=== PATIENT | female | born 1975 | race Two or more races ===

== ENCOUNTER 2023-07-28 00:18 | Inpatient (IN) | payer OTHER, SELFPAY ==
--- OUTSIDE RECORDS SUMMARY | 2023-07-28 00:22 | XMS_ITS | Continuity of Care Document ---
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
--- OUTSIDE RECORDS SUMMARY | 2023-07-28 00:22 | XMS_ITS | Continuity of Care Document ---
Author Name Unknown Organization [facility] Address Unknown Care Team Providers Care Soda Jerker Name Role Phone Chaka VAUGHAN, Katia Busch Primary Care Physician [place] [facility] [place]21 [place] 12/26/21 [facility] Allergies, Adverse Reactions, Alerts No Known Allergies Immunizations Given and Recorded Vaccine Date Status Refusal Reason SARS-CoV-2 mRNA ([id number]) vax 11/17/21 Recorded SARS-CoV-2 mRNA ([id number]) vax 10/27/21 Recorded SARS-CoV-2 (COVID-19) mRNA-1273 vaccine 01/07/21 R ecorded Medications duloxetine 60 mg oral enteric coated capsule 1 capsule = 60 mg, By Mouth, 2 times a day, # 30 capsule, 0 Refills, Maintenance, 03/26/21 7:50:00 EDT, EC Capsule, Partial fill upon patient request if the prescription is for a schedule II opioid drug. Start Date: 03/26/21 Status: Ordered gabapentin 100 mg oral capsule See Instructions, 1 capsule By Mouth daily at bedtime, increase to 2 caps if needed after 3 days, increased to 3 caps if needed after 3 days, # 60 capsule, Refills 1, Tot. Refills 1, Maintenance, 08/12/21 9:41:00 EST, Instructions Replace Required Det... Start Date: 08/12/21 Status: Ordered omeprazole 20 mg oral enteric coated capsule 1 capsule = 20 mg, By Mouth, Daily, take on empty stomach , with water, 30 min before breakfast, # 30 capsule, 0 Refills, Maintenance, 10/27/21 11:40:00 EST, EC Capsule, [id number], Partial fill upon patient request if the prescription is for... Start Date: 10/27/21 Stop Date: 11/26/21 Status: Ordered riboflavin 100 mg oral tablet 1 tablet = 100 mg, By Mouth, 2 times a day, dose increase, # 60 tablet, 6 Refills, Maintenance, 10/20/21 14:33:00 [place], [id number], Partial fill upon patient request if the prescription is fora schedule II opioid drug., 165, cm, 09/30/21 9:51:... Start Date: 10/20/21 Stop Date: 05/18/22 Status: Ordered Problem List Condition Effective Dates Status Health Status Inform ant Alopecia(Confirmed) Active Anxiety(Confirmed) Active Easy bruising(Confirmed) Active Esophageal spasm(Confirmed) Active Fibromyalgia(Confirmed) Active GERD (gastroesophageal reflu x disease)(Confirmed) Active Migraines(Confirmed) Active Social History Social History Type Response Smoking Status Never (less than 100 in lifetime) entered on: 03/26/21 Sex
--- OUTSIDE RECORDS SUMMARY | 2023-07-28 00:22 | XMS_ITS | Patient Health Record ---
Author Name Unknown Organization [address] [facility] Address [address] [facility] [address] [place] [address] Care Team Providers Care Roading Engineer Name Role Phone DARCIE ADAME Unavailable [phone] MUHAMMADASHISH JACKSON Unavailable [phone] SABINAMONA Unavailable [phone] ALLERGIES Allergen (clinical drug ingredient) Drug/Non Drug Allergy documented on EMR Reaction Allergy Type Onset Date Status Tree Nuts Unknown Allergy Active Peanut Butter OS Unknown Drug Allergy Active RESULTS Component Value Reference Range Notes ANTINUCLEAR ANTIBODIES TITER AND PATTERN Reviewed date:02/09/2023 02:45:35 PM Interpretation: Performing Lab:NL2, link bird [facility] Mino Coker Notes/Report: FASTING: YES FASTING:YES 0; 0; 0; 0; 0; 0; 0; 0 DAWN TITER 1:160 Reference Range <1:40 Negative 1:40-1:80 Low Antibody Level >1:80 Elevated Antibody Level DAWN PATTERN Nuclear, Dense Fine Speckled Dense fine speckled pattern is seen in normal individuals and rarely associated with systemic lupus erythematosis (SLE), Sjogren's syndrome and systemic sclerosis. AC-2: Dense Fine Speckled International Consensus on DAWN Patterns (https://doi.org/10.1515/ qnct-9945-0818) VITAMIN D,25-OH,TOTAL,IA Reviewed date:02/05/2023 07:43:14 AM Interpretation: Performing Lab:NL2, link bird [facility] Mino Coker Notes/Report: FASTING: YES FASTING:YES 0; 0; 0; 0; 0; 0; 0; 0 VITAMIN D,25-OH,TOTAL,IA 22 30-100 ng/mL Vitamin D Status 25-OH Vitamin D: Deficiency: <20 ng/mL Insufficiency: 20 - 29 ng/mL Optimal: > or = 30 ng/mL For 25-OH Vitamin D testing on patients on D2-supplementation and patients for whom quantitation of D2 and D3 fractions is required, the QuestAssureD(TM) 25-OH VIT D, (D2,D3), LC/MS/MS is recommended: order code 29379 (patients >2yrs). See Note 1 Note 1 For additional information, please refer to http://Datorama.Lore/faq/WRE133 (This link is being provided for informational/ educational purposes only.) TSH Reviewed date:02/05/2023 07:42:46 AM Interpretation: Performing Lab:NL2, link bird [facility] Mino Coker Notes/Report: 0; 0; 0; 0; 0; 0; 0; 0 FASTING:YES FASTING: YES TSH 1.74 Reference Range > or = 20 Years 0.40-4.50 Ranges First trimester 0.26-2.66 Second trimester 0.55-2.73 Third trimester 0.43-2.91 VITAMIN B12 Reviewed date:02/05/2023 07:42:46 AM Interpretation: Performing Lab:NL2, link bird [facility] Mino Coker Notes/Report: 0; 0; 0; 0; 0; 0; 0; 0 FASTING:YES FASTING: YES VITAMIN B12 [phone] pg/mL Please Note: Although the reference range for vitamin B12 is 200-1100 pg/mL, it has been reported that between 5 and 10% of patients with values between 200 and 400 pg/mL may experience neuropsychiatric and hematologic abnormalities due to occult B12 deficiency; less than 1% of patients with values above 400 pg/mL will have symptoms. DAWN SCREEN, IFA, W/REFL TITE R AND PATTERN Reviewed date:02/09/2023 02:45:47 PM Interpretation: Performing Lab:SeeMe [facility] Mino Coker Notes/Report: 0; 0; 0; 0; 0; 0; 0; 0 FASTING:YES FASTING: YES DAWN SCREEN, IFA POSITIVE NEGATIVE DAWN IFA is a first line screen for detecting the presence of up to approximately 150 autoantibodies in various autoimmune diseases. A positive DAWN IFA result is suggestive of autoimmune disease and reflexes to titer and pattern. Further laboratory testing may be considered if clinically indicated. For additional information, please refer to http://education.Lore/faq/QTK251 (This link is being provided for informational/ educational purposes only.) RHEUMATOID FACTOR Reviewed date:02/08/2023 03:24:53 PM Interpretation: Performing Lab:[facility] [id number] Mino Coker Notes/Report: 0; 0; 0; 0; 0; 0; 0; 0 FASTING:YES FASTING: YES RHEUMATOID FACTOR 89 <14 IU/mL C-REACTIVE PROTEIN Reviewed date:02/05/2023 03:20:23 PM Interpretation: Performing Lab:[facility] [id number] Mino Coker Notes/Report: 0; 0; 0; 0; 0; 0; 0; 0 FASTING:YES FASTING: YES C-REACTIVE PROTEIN 4.8 <8.0 mg/L SED RATE BY MODIFIED WESTERG BRUNILDA Reviewed date:02/05/2023 07:42:46 AM Interpretation: Performing Lab:[facility] Mino Coker Notes/Report: 0; 0; 0; 0; 0; 0; 0; 0 FASTING:YES FASTING: YES SED RATE BY MODIFIED WESTERGREN 6 < OR = 20 mm/h URINALYSIS, COMPLETE Reviewed date:02/05/2023 07:43:21 AM Interpretation: Performing Lab:[facility] Mino Coker Notes/Report: 0; 0; 0; 0; 0; 0; 0; 0 FASTING:YES FASTING: YES COLOR YELLOW YELLOW APPEARANCE CLEAR CLEAR SPECIFIC GRAVITY 1.026 1.001-1.035 PH 6.0 5.0-8.0 GLUCOSE NEGATIVE NEGATIVE BILIRUBIN NEGATIVE NEGATIVE KETONES TRACE NEGATIVE OCCULT BLOOD NEGATIVE NEGATIVE PROTEIN TRACE NEGATIVE NITRITE NEGATIVE NEGATIVE LEUKOCYTE ESTERASE NEGATIVE NEGATIVE WBC NONE SEEN < OR = 5 /HPF RBC 0-2 < OR = 2 /HPF SQUAMOUS EPITHELIAL CELLS 0-5 < OR = 5 /HPF BACTERIA NONE SEEN NONE SEEN /HPF HYALINE CAST 6-10 NONE SEEN /LPF NOTE This urine was analyzed for the presence of WBC, RBC, bacteria, casts, and other formed elements. Only those elements seen were reported. CBC (INCLUDES DIFF/PLT) Reviewed date:02/05/2023 07:43:26 AM Interpretation: Performing Lab:NL2, link bird [facility] [id number] Mino Coker Notes/Report: 0; 0; 0; 0; 0; 0; 0; 0 FASTING:YES FASTING: YES WHITE BLOOD CELL COUNT 8.0 3.8-10.8 Thousand/uL RED BLOOD CELL COUNT 5.01 3.80-5.10 Million/uL HEMOGLOBIN 13.9 11.7-15.5 g/dL HEMATOCRIT 42.0 35.0-45.0 % MCV 83.8 80.0-100.0 fL MCH 27.7 27.0-33.0 pg MCHC 33.1 32.0-36.0 g/dL RDW 13.6 11.0-15.0 % PLATELET COUNT 353 140-400 Thousand/uL MPV 9.3 7.5-12.5 fL ABSOLUTE NEUTROPHILS [phone] cells/uL ABSOLUTE LYMPHOCYTES 2744 850-3900 cells/uL ABSOLUTE MONOCYTES 464 200-950 cells/uL ABSOLUTE EOSINOPHILS 800 15-500 cells/uL ABSOLUTE BASOPHILS 48 0-200 cells/uL NEUTROPHILS 49.3 LYMPHOCYTES 34.3 MONOCYTES 5.8 EOSINOPHILS 10.0 BASOPHILS 0.6 COMPREHENSIVE METABOLIC PANE L Reviewed date:02/05/2023 07:42:46 AM Interpretation: Performing Lab:2, link bird [facility] Mino Anayat Notes/Report: 0; 0; 0; 0; 0; 0; 0; 0 FASTING:YES FASTING: YES GLUCOSE 96 65-99 mg/dL Fasting reference interval UREA NITROGEN (BUN) 21 7-25 mg/dL CREATININE 0.85 0.50-0.99 mg/dL EGFR 85 > OR = 60 mL/min/1.73m2 The eGFR is based on the CKD-EPI 2020 equation. To calculate the new eGFR from a previous Creatinine or Cystatin C result, go to https://www.kidney.org/pr ofessionals/ kdoqi/gfr%5Fcalculator BUN/CREATININE RATIO NOT APPLICABLE 6-22 (calc) SODIUM 138 135-146 mmol/L POTASSIUM 4.2 3.5-5.3 mmol/L CHLORIDE 105 98-110 mmol/L CARBON DIOXIDE 25 20-32 mmol/L CALCIUM 9.8 8.6-10.2 mg/dL PROTEIN, TOTAL 7.1 6.1-8.1 g/dL ALBUMIN 4.8 3.6-5.1 g/dL GLOBULIN 2.3 1.9-3.7 g/dL (calc) ALBUMIN/GLOBULIN RATIO 2.1 1.0-2.5 (calc) BILIRUBIN, TOTAL 0.4 0.2-1.2 mg/dL ALKALINE PHOSPHATASE 71 31-125 U/L AST 18 10-35 U/L ALT 19 6-29 U/L VITAMIN D,25-OH,TOTAL,IA Reviewed date:09/16/2022 07:52:40 AM Interpretation: Performing Lab:NL2, [facility] [address] (2)[place] [address]RkkjphoimncIH[address] [facility] Coker Notes/Report: 0; 0; 0; 0; 0; 0 FASTING:NO FASTING: NO VITAMIN D,25-OH,TOTAL,IA 32 30-100 ng/mL Vitamin D Status 25-OH Vitamin D: Deficiency: <20 ng/mL Insufficiency: 20 - 29 ng/mL Optimal: > or = 30 ng/mL For 25-OH Vitamin D testing on patients on D2-supplementation and patients for whom quantitation of D2 and D3 fractions is required, the QuestAssureD(TM) 25-OH VIT D, (D2,D3), LC/MS/MS is recommended: order code 67411 (patients >2yrs). See Note 1 Note 1 For additional information, please refer to http://education.Lore/faq/PLB440 (This link is being provided for informational/ educational purposes only.) HEMOGLOBIN A1c Reviewed date:09/16/2022 07:52:40 AM Interpretation: Performing Lab:NL2, link bird [facility], (2), [id number] Mino Coker Notes/Report: 0; 0; 0; 0; 0; 0 FASTING:NO FASTING: NO HEMOGLOBIN A1c 5.5 <5.7 % of total Hgb For the purpose of screening for the presence of diabetes: <5.7% Consistent with the absence of diabetes 5.7-6.4% Consistent with increased risk for diabetes (prediabetes) > or =6.5% Consistent with diabetes This assay result is consistent with a decreased risk of diabetes. Currently, no consensus exists regarding use of hemoglobin A1c for diagnosis of diabetes in children. According to [place] Diabetes Association (ADA) guidelines, hemoglobin A1c <7.0% represents optimal control in non- diabetic patients. Different metrics may apply to specific patient populations. Standards of Medical Care in Diabetes(ADA). URINALYSIS, COMPLETE Reviewed date:09/16/2022 07:53:02 AM Interpretation: Performing Lab:NL2, link [facility], ([address]2), [id number] Mino Coker Notes/Report: 0; 0; 0; 0; 0; 0 FASTING:NO FASTING: NO COLOR YELLOW YELLOW APPEARANCE CLEAR CLEAR SPECIFIC GRAVITY 1.021 1.001-1.035 PH 6.0 5.0-8.0 GLUCOSE NEGATIVE NEGATIVE BILIRUBIN NEGATIVE NEGATIVE KETONES NEGATIVE NEGATIVE OCCULT BLOOD NEGATIVE NEGATIVE PROTEIN NEGATIVE NEGATIVE NITRITE NEGATIVE NEGATIVE LEUKOCYTE ESTERASE 1+ NEGATIVE WBC 0-5 < OR = 5 /HPF RBC NONE SEEN < OR = 2 /HPF SQUAMOUS EPITHELIAL CELLS NONE SEEN < OR = 5 /HPF BACTERIA NONE SEEN NONE SEEN /HPF HYALINE CAST NONE SEEN NONE SEEN /LPF NOTE This urine was analyzed for the presence of WBC, RBC, bacteria, casts, and other formed elements. Only those elements seen were reported. CBC (INCLUDES DIFF/PLT) Reviewed date:09/16/2022 07:52:53 AM Interpretation: Performing Lab:2, link bird [facility] ([address]), [id number] Mino Coker Notes/Report: 0; 0; 0; 0; 0; 0 FASTING:NO FASTING: NO WHITE BLOOD CELL COUNT 8.5 3.8-10.8 Thousand/uL RED BLOOD CELL COUNT 4.57 3.80-5.10 Million/uL HEMOGLOBIN 12.8 11.7-15.5 g/dL HEMATOCRIT 39.2 35.0-45.0 % MCV 85.8 80.0-100.0 fL MCH 28.0 27.0-33.0 pg MCHC 32.7 32.0-36.0 g/dL RDW 13.1 11.0-15.0 % PLATELET COUNT 337 140-400 Thousand/uL MPV 9.8 7.5-12.5 fL ABSOLUTE NEUTROPHILS 4029 4172-0120 cells/uL ABSOLUTE LYMPHOCYTES 3273 850-3900 cells/uL ABSOLUTE MONOCYTES 519 200-950 cells/uL ABSOLUTE EOSINOPHILS 629 15-500 cells/uL ABSOLUTE BASOPHILS 51 0-200 cells/uL NEUTROPHILS 47.4 LYMPHOCYTES 38.5 MONOCYTES 6.1 EOSINOPHILS 7.4 BASOPHILS 0.6 COMPREHENSIVE METABOLIC PANE L Reviewed date:09/16/2022 08:52:00 AM Interpretation: Performing Lab:SMIC, link bird [facility] ([address]), [id number] Mino Coker Notes/Report: 0; 0; 0; 0; 0; 0 FASTING:NO FASTING: NO GLUCOSE 86 65-139 mg/dL Non-fasting reference interval UREA NITROGEN (BUN) 18 7-25 mg/dL CREATININE 0.80 0.50-0.99 mg/dL EGFR 92 > OR = 60 mL/min/1.73m2 The eGFR is based on the CKD-EPI 2020 equation. To calculate the new eGFR from a previous Creatinine or Cystatin C result, go to https://www.kidney.org/pr ofessionals/ kdoqi/gfr%5Fcalculator BUN/CREATININE RATIO NOT APPLICABLE 03-18 (calc) SODIUM 141 135-146 mmol/L POTASSIUM 4.3 3.5-5.3 mmol/L CHLORIDE 107 98-110 mmol/L CARBON DIOXIDE 24 20-32 mmol/L CALCIUM 9.6 8.6-10.2 mg/dL PROTEIN, TOTAL 7.1 6.1-8.1 g/dL ALBUMIN 4.6 3.6-5.1 g/dL GLOBULIN 2.5 1.9-3.7 g/dL (calc) ALBUMIN/GLOBULIN RATIO 1.8 1.0-2.5 (calc) BILIRUBIN, TOTAL 0.5 0.2-1.2 mg/dL ALKALINE PHOSPHATASE 65 31-125 U/L AST 14 10-35 U/L ALT 15 6-29 U/L LIPID PANEL, STANDARD Reviewed date:09/16/2022 01:25:12 PM Interpretation: Performing Lab:NL2, link bird [facility] [address] [place] [address], (Nl2), [id number] [facility] Sheela Notes/Report: 0; 0; 0; 0; 0; 0 FASTING:NO FASTING: NO CHOLESTEROL, TOTAL 267 <200 mg/dL HDL CHOLESTEROL 69 > OR = 50 mg/dL TRIGLYCERIDES 190 <150 mg/dL LDL-CHOLESTEROL 163 Reference range: <100 Desirable range <100 mg/dL for primary prevention; <70 mg/dL for patients with CHD or diabetic patients with > or = 2 CHD risk factors. LDL-C is now calculated using the Lemuel-Glass calculation, which is a validated novel method providing better accuracy than the Friedewald equation in the estimation of LDL-C. Lemuel SS et al. BISMARK. 2013;310(19): 1317-5843 (http://education.AllergEase.Emulate/faq/SMB563) CHOL/HDLC RATIO 3.9 <5.0 (calc) NON HDL CHOLESTEROL 198 <130 mg/dL (calc) For patients with diabetes plus 1 major ASCVD risk factor, treating to a non-HDL-C goal of <100 mg/dL (LDL-C of <70 mg/dL) is considered a therapeutic option. REASON FOR REFERRAL Reason chronic back pain wi th [facility] in [place] Diagnosis 1 Lumbar pain (M54.50) Referral Organization [facility] Referring Provider First Name DARCIE Referring Provider Last Name WENDI Referring Provider Speciality Internal M edicine Referred Provider Specialty Spinal Cord Injury Medicine Clinical Notes NghiemKaren 2021 11:33:22 AM >waiting for complete office notes to fax referral, Jose Karen 09/15/2022 04:09:37 PM >referral info sent to [facility] in [facility], Jose Karen 09/17/2022 10:40:01 AM >notified pt to f/u for self appt Referral Priority Routine Diagnosis 1 Fibromyalgia (M79.7) Diagnosis 2 Lupus (M32.9) Referral Organization [facility] Referring Provider First Name DARCIE Referring Provider Last Name WENDI Referring Provider Speciality Internal M edicine Referred Provider Specialty Rheumatology Clinical Notes Louise Stearns 2022 03:53:37 PM >[facility] 02/16/2023 02:02:39 PM >pt is a pt there she can call to make appt Referral Priority Routine MEDICATIONS Medication SIG (Take, Route, Frequency, Duration) Notes Start Date End Date Status DULoxetine HCl 60 MG 1 capsule Orally On ce a day for 90 days Active Propranolol HCl 20 MG 1 tablet Orally On ce a day Active Pregabalin 150 MG 1 capsule Orally Twi ce a day for 30 days 05/25/2023 Not-Taking traMADol HCl 50 MG 1 tablet as needed Orally Once a day for 30 days 07/22/2023 Active Topiramate 25 MG TAKE 1 TABLET BY RENE TH EVERY DAY for 90 Active Pravastatin Sodium 20 MG 1 tablet Orally Once a day for 90 days Active SOCIAL HISTORY Sex Assigned At : Social History Observation Description Sex Assigned At Unknown PROBLEMS Problem Type ICD Code Onset Dates Problem Status W/U Status Risk SNOMED Code Notes Problem Chronic pain syndrome (G89.4) Active confirmed 588213217 Problem Fibromyalgia (M79.7) Active confirmed 813516502 Problem Hyperlipidemia, unspecified hyperlipidemia type (E78.5) Active confirmed 27705852 Problem Vitamin D deficiency (E55.9) Active confirmed Vitamin D deficiency (09965943) Problem Hair loss (L65.9) Active confirmed 2780 77890 Problem Intractable migraine without status migrainosus, unspecified migraine type (G43.919) Active confirmed 502558682 Problem Hypertension, unspecified type (I10) Active confirmed 96749887 Problem Lupus (M32.9) Active confirmed 27646936 3 Problem Brittle nails (L60.3) Active confirmed 02896795 Problem Depression, unspecified depression type (F32.A) Active confirmed 01977742 VITAL SIGNS Heart Rate 95 /min 07/21/2023 Oximetry 99 % 07/21/2023 Blood pressure diastolic 78 mm Hg 07/21/2023 Height 66 in 07/21/2023 Blood pressure systolic 120 mm Hg 07/21/2023 Weight 195.5 lbs 07/21/2023 BMI 31.55 kg/m2 07/21/2023 Encounters Encounter Location Date Provider Diagnosis [facility] [address] [place] [address] 01/06/2023 DARCIE WENDI [facility] [address] [place] [address] 06/01/2023 MONA MUHAMMAD [facility] [address] [place] [address] 07/21/2023 DARCIE WENDI Fibromyalgia M79.7 ; Nerve pain M79.2 ; Intractable migraine without status migrainosus, unspecified migraine type G43.919 ; Depression, unspecified depression type F32.A ; Hypertension, unspecified type I10 ; Hyperlipidemia, unspecified hyperlipidemia type E78.5 and Chronic pain syndrome G89.4 [facility] [address] [place] [address] 09/15/2022 DARCIE WENDI Brittle nails L60.3 ; Fibromyalgia M79.7 ; Hair loss L65.9 ; Intractable migraine without status migrainosus, unspecified migraine type G43.919 ; Depression, unspecified depression type F32.A ; Hypertension, unspecified type I10 ; Hyperlipidemia, unspecified hyperlipidemia type E78.5 and Chronic pain syndrome G89.4 [facility] [address] [place] [address] 11/02/2022 DARCIE WENDI Fibromyalgia M79.7 ; Wellness examination Z00.00 ; Colon cancer screening Z12.11 ; Breast cancer screening by mammogram Z12.31 ; Intractable migraine without status migrainosus, unspecified migraine type G43.919 ; Depression, unspecified depression type F32.A ; Hypertension, unspecified type I10 ; Hyperlipidemia, unspecified hyperlipidemia type E78.5 and Chronic pain syndrome G89.4 [facility] [address] [place] [address] 02/04/2023 DARCIE WENDI Nerve pain M79.2 ; Fibromyalgia M79.7 ; Intractable migraine without status migrainosus, unspecified migraine type G43.919 ; Depression, unspecified depression type F32.A ; Hypertension, unspecified type I10 ; Hyperlipidemia, unspecified hyperlipidemia type E78.5 and Chronic pain syndrome G89.4 [facility] [address] [place] [address] 03/09/2023 DARCIE WENDI Fibromyalgia M79.7 ; Nerve pain M79.2 ; Intractable migraine without status migrainosus, unspecified migraine type G43.919 ; Depression, unspecified depression type F32.A ; Hypertension, unspecified type I10 ; Hyperlipidemia, unspecified hyperlipidemia type E78.5 and Chronic pain syndrome G89.4 [facility] [address] [place] [address] 05/25/2023 DARCIE WENDI Fibromyalgia M79.7 ; Nerve pain M79.2 ; Intractable migraine without status migrainosus, unspecified migraine type G43.919 ; Depression, unspecified depression type F32.A ; Hypertension, unspecified type I10 ; Hyperlipidemia, unspecified hyperlipidemia type E78.5 and Chronic pain syndrome G89.4 [facility] [address] [place] [address] 07/27/2023 DARCIE WENDI Depression, unspecif ied depression type F32.A ; Fibromyalgia M79.7 ; Chronic pain syndrome G89.4 ; Intractable migraine without status migrainosus, unspecified migraine type G43.919 and Nerve pain M79.2 [facility] [address] [place] [address] 09/07/2022 DARCIE WENDI [facility] [address] [place] [address] 09/16/2022 DARCIE WENDI [facility] [address] [place] [address] 09/16/2022 DARCIE WENDI [facility] [address] [place] [address] 01/05/2023 DARCIE WENDI [facility] [address] [place] [address] 03/04/[address] [facility] [facility] [address] [place] [address] 03/04/[address] [facility] [address] [place] [address] 03/10/[address] [facility] [address] [place] [address] 04/27/2023 DARCIE WENDI [address] [facility] [address] [place] [address] 07/22/2023 TALAL MUHAMMAD [address] [facility] [address] [facility] [address] [place] [address] 07/22/2023 DARCIE WENDI [address] [facility] [address] [facility] [address] [place] [address] 07/27/[address] [facility] [address] [place] [address] 09/11/2022 DARCIE ESCOBARRO ASSESSMENTS Encounter Date Diagnosis Assessment Notes Treatment Notes Treatment Clinical Notes 09/15/2022 Fibromyalgia (ICD-10 - M79.7) 09/15/2022 Brittle nails (ICD-1 0 - L60.3) 11/02/2022 Fibromyalgia (ICD-10 - M79.7) 11/02/2022 Wellness examination (ICD-10 - Z00.00) 02/04/2023 Fibromyalgia (ICD-10 - M79.7) 02/04/2023 Nerve pain (ICD-10 - M79.2) 03/09/2023 Fibromyalgia (ICD-10 - M79.7) 03/09/2023 Nerve pain (ICD-10 - M79.2) 05/25/2023 Fibromyalgia (ICD-10 - M79.7) 05/25/2023 Nerve pain (ICD-10 - M79.2) 07/21/2023 Fibromyalgia (ICD-10 - M79.7) 07/27/2023 Fibromyalgia (ICD-10 - M79.7) 07/27/2023 Depression, unspecified depression type (ICD-10 - F32.A) 07/21/2023 Nerve pain (ICD-10 - M79.2) 07/27/2023 Chronic pain syndrom e (ICD-10 - G89.4) 05/25/2023 Intractable migraine without status migrainosus, unspecified migraine type (ICD-10 - G43.919) 03/09/2023 Intractable migraine without status migrainosus, unspecified migraine type (ICD-10 - G43.919) 02/04/2023 Intractable migraine without status migrainosus, unspecified migraine type (ICD-10 - G43.919) 11/02/2022 Colon cancer screening (ICD-10 - Z12.11) 09/15/2022 Hair loss (ICD-10 - L65.9) 09/15/2022 Intractable migraine without status migrainosus, unspecified migraine type (ICD-10 - G43.919) 11/02/2022 Breast cancer screening by mammogram (ICD-10 - Z12.31) 02/04/2023 Depression, unspecified depression type (ICD-10 - F32.A) 03/09/2023 Depression, unspecified depression type (ICD-10 - F32.A) 05/25/2023 Depression, unspecified depression type (ICD-10 - F32.A) 07/21/2023 Intractable migraine without status migrainosus, unspecified migraine type (ICD-10 - G43.919) 07/27/2023 Intractable migraine without status migrainosus, unspecified migraine type (ICD-10 - G43.919) 07/27/2023 Nerve pain (ICD-10 - M79.2) 07/21/2023 Depression, unspecified depression type (ICD-10 - F32.A) 05/25/2023 Hypertension, unspecified type (ICD-10 - I10) 03/09/2023 Hypertension, unspecified type (ICD-10 - I10) 11/02/2022 Intractable migraine without status migrainosus, unspecified migraine type (ICD-10 - G43.919) 02/04/2023 Hypertension, unspecified type (ICD-10 - I10) 09/15/2022 Depression, unspecified depression type (ICD-10 - F32.A) 09/15/2022 Hypertension, unspecified type (ICD-10 - I10) 02/04/2023 Hyperlipidemia, unspecified hyperlipidemia type (ICD-10 - E78.5) 11/02/2022 Depression, unspecified depression type (ICD-10 - F32.A) 03/09/2023 Hyperlipidemia, unspecified hyperlipidemia type (ICD-10 - E78.5) 05/25/2023 Hyperlipidemia, unspecified hyperlipidemia type (ICD-10 - E78.5) 07/21/2023 Hypertension, unspecified type (ICD-10 - I10) 07/21/2023 Hyperlipidemia, unspecified hyperlipidemia type (ICD-10 - E78.5) 05/25/2023 Chronic pain syndrom e (ICD-10 - G89.4) 03/09/2023 Chronic pain syndrom e (ICD-10 - G89.4) 02/04/2023 Chronic pain syndrom e (ICD-10 - G89.4) 11/02/2022 Hypertension, unspecified type (ICD-10 - I10) 09/15/2022 Hyperlipidemia, unspecified hyperlipidemia type (ICD-10 - E78.5) 11/02/2022 Hyperlipidemia, unspecified hyperlipidemia type (ICD-10 - E78.5) 09/15/2022 Chronic pain syndrom e (ICD-10 - G89.4) 07/21/2023 Chronic pain syndrom e (ICD-10 - G89.4) 11/02/2022 Chronic pain syndrom e (ICD-10 - G89.4) PLAN OF TREATMENT Pending Test Test Name Order Date Mammogram 11/02/2022 ESR 02/04/2023 Cologuard 11/02/2022 Next Appt Details Provider Name:DARCIE ADAME, Kishan 11/02/2022 11:30:00 AM, [address], [place], [address], Insurance Providers Payer Name Payer Address Payer Phone Subscriber Number Group Number Insured Name Patient Relationship to Insured Coverage Start Date Coverage End Date [facility] [address] [place] [address] [id number] Mariam Caballero Self - patient is the insured 2 MEDICATIONS ADMINISTERED Medication Instructions Date of Administration Dosage Notes MICC B12 INJECTION 06/01/2023 lot# [id number] MEDICAL (GENERAL) HISTORY Medical History History ICD Code high blood pressure high Cholesterol Arthritis anxiety depression headache fibromyalgia History of angina Seasonal allergies positive DAWN chronic pain syndrome Suicidal ideation with plan Surgical History Surgery Date(Month/Year) hysterectomy 1999 Removal of bilateral ovaries due to fibr oids 2019 Hospitalization History Reason Date(Month/Year) kidney infection 2005
--- OUTSIDE RECORDS SUMMARY | 2023-07-28 00:22 | XMS_ITS | Continuity of Care Document ---
Author Name Unknown Organization [facility] Address [address] [place] [address]- Care Team Providers Care Communications Operator Name Role Phone Chaka VAUGHAN, Katia Busch Primary Care Physician ( [phone] Encounter [facility] [place] Date(s): 08/13/21 - 09/26/21 [facility] [address] [place] [address]- Attending Physician: Not on Staff, Attending MD Allergies, Adverse Reactions, Alerts Substance Reaction Severity Status NKA Active Immunizations Given and Recorded Vaccine Date Status Refusal Reason SARS-CoV-2 (COVID-19) mRNA-2498 vaccine 01/07/21 R ecorded Medications duloxetine 60 [...] Required Det... Start Date: 08/12/21 Status: Ordered meloxicam 15 mg oral tablet TAKE 1 TABLET BY MOUTH EVERY DAY FOR 30 DAYS Start Date: 07/10/21 Status: Ordered naratriptan 2.5 mg oral tablet See Instructions, TAKE 1 TABLET BY MOUTH AT ONSET OF HEADACHE. MAY REPEAT ONCE IN 4 HOURS IF NEEDED., # 9 tablet, 0 Refills, [id number], 165, cm, 07/10/21 12:25:00 EDT, Height Start Date: 07/14/21 Status: Ordered topiramate 25 mg oral tablet 1 tablet, By Mouth, 2 times a day, TAKE WITH TOPAMAX 50MG FOR TOTAL DAILY DOSE OF 75MG, # 180 tablet, 0 Refills, [id number], 165, cm, 07/10/21 12:25:00 EDT, Height Start Date: 07/14/21 Status: Ordered VITAMIN B-2 100 MG TABLET VITAMIN B-2 100 MG TABLET, 1, tablet, By Mouth, Daily in AM, # 90 tablet, 0 Refills Start Date: 06/16/21 Status: Ordered Problem List Condition Effective Dates Status Health Status Inform ant Alopecia(Confirmed) Active Anxiety(Confirmed) Active Easy bruising(Confirmed) Active Esophageal spasm(Confirmed) Active Fibromyalgia(Confirmed) Active GERD (gastroesophageal reflu x disease)(Confirmed) Active Migraines(Confirmed) Active Social History Social History Type Response Smoking Status Never (less than 100 in lifetime) entered on: 03/26/21 Sex
--- OUTSIDE RECORDS SUMMARY | 2023-07-28 00:23 | XMS_ITS | Continuity of Care Document ---
Author Name Unknown Organization [facility] Address [address] [place] [address]- Care Team Providers Care Document Advisor Name Role Phone Kristin Munoz NP Primary Care Physician [phone] Encounter [facility] [place] Date(s): 07/03/21 - 08/02/21 [facility] [address] [place] [address]- Allergies, Adverse Reactions, Alerts Substance Reaction Severity Status NKA Active Immunizations Given and Recorded Vaccine Date Status Refusal Reason SARS-CoV-2 (COVID-19) mRNA-9112 vaccine 01/07/21 R ecorded Medications duloxetine 60 mg oral enteric coated capsule 1 capsule = 60 mg, By Mouth, Daily, # 30 capsule, 0 Refills, Maintenance, 03/26/21 7:50:00 EDT, [facility] Caps[facility], Partial fill upon patient request if the prescription is for a schedule II opioid drug. Start Date: 03/26/21 Status: Ordered meloxicam 15 mg oral tablet TAKE 1 TABLET BY MOUTH EVERY DAY FOR 30 DAYS Start Date: 07/10/21 Status: Ordered naratriptan 2.5 mg oral tablet See Instructions, TAKE 1 TABLET BY MOUTH AT ONSET OF HEADACHE. MAY REPEAT ONCE IN 4 HOURS IF NEEDED., # 9 tablet, 0 Refills, [facility] [id number], 165, cm, 07/10/21 12:25:00 EDT, Height Start Date: 07/14/21 Status: Ordered topiramate 25 mg oral tablet 1 tablet, By Mouth, 2 times a day, TAKE WITH TOPAMAX 50MG FOR TOTAL DAILY DOSE OF 75MG, # 180 tablet, 0 Refills, [facility] [id number], 165, cm, 07/10/21 12:25:00 EDT, Height Start [...]
--- OUTSIDE RECORDS SUMMARY | 2023-07-28 00:23 | XMS_ITS | Continuity of Care Document ---
Author Name Unknown Organization [facility] Address [address] [place] [address]- Care Team Providers Care Top Steep Tender Name Role Phone Chaka VAUGHAN, Katia Busch Primary Care Physician ( [phone] [place] [facility] [place] 09/08/21 - 10/08/21 [facility] [address] [place], [place] [address] Allergies, Adverse Reactions, Alerts Substance Reaction Severity Status NKA Active Immunizations Given and Recorded Vaccine Date Status Refusal Reason SARS-CoV-2 (COVID-19) mRNA-1798 vaccine 01/07/21 R ecorded Medications duloxetine 60 [...] IF NEEDED., # 9 tablet, 0 Refills, [facility] [id number], 165, cm, 07/10/21 12:25:00 EDT, Height Start Date: 07/14/21 Status: Ordered ProAir HFA 90 mcg/inh inhalation aerosol 2 puffs, Inhalation, 4 times a day, PRN Wheezing/Shortness of Breath, # 1 each, 0 Refills, Maintenance, 09/30/21 12:27:00 EST, [facility]/pharmacy #[id number], Partial fill upon patient request if the prescription is for a schedule II opioid drug., 2 puffs Inhalat... Start Date: 09/30/21 Stop Date: 10/30/21 Status: Ordered topiramate 25 mg oral tablet 1 tablet, By Mouth, 2 times a day, TAKE WITH TOPAMAX 50MG FOR TOTAL DAILY DOSE OF 75MG, # 180 tablet, 0 Refills, [id number], 165, cm, 07/10/21 12:25:00 EDT, Height Start [...]
--- OUTSIDE RECORDS SUMMARY | 2023-07-28 00:23 | XMS_ITS | Continuity of Care Document ---
Author Name Unknown Organization [facility] Address [address] [facility], [address] Floor, [address] [place] [address]- [place] [facility] [place](s): 05/17/23 - 06/16/23 [facility] [address] [facility], [address] Floor, [address] [place] [address]- Attending Physician: Victor Hugo Gifford Admitting Physician: Admtr, Victor Hugo Referring Physician: Admtr, Ar8 Allergies, Adverse Reactions, Alerts Substance Reaction Severity Status Peanuts Active Immunizations Given and Recorded Vaccine Date Status Refusal Reason SARS-CoV-2 mRNA (xnpbhej-ffvz-pjwkn) vax 11/17/21 Recorded SARS-CoV-2 mRNA (xlxhmfx-vmpa-oyzmf) vax 10/27/21 Recorded SARS-CoV-2 (COVID-19) mRNA-1273 vaccine 01/07/21 R ecorded Medications duloxetine 60 mg oral enteric coated capsule 1 capsule = 60 mg, By Mouth, 2 times a day, # 30 capsule, 0 Refills, Maintenance, 03/26/21 7:50:00 EDT, [facility] Caps[facility], Partial fill upon patient request if the prescription is for a schedule II opioid drug. Start Date: 03/26/21 Status: Ordered Emgality Prefilled Pen 120 mg/mL subcutaneous solution = 240 mg, Subcutaneous Injection, Once, Loading Dose, # 2 kit, 0 Refills, Soft Stop, 01/07/23 15:15:00 EDT, [facility], Partial fill upon patient request if the prescription is for aschedule II opioid drug., 165, cm, 01/05/23 16:06:0... Start Date: 01/07/23 Status: Ordered Emgality Prefilled Pen 120 mg/mL subcutaneous solution = 120 mg, Subcutaneous Injection, Once, Maintenance Dose, # 1 kit, 5 Refills, Soft Stop, 01/07/23 15:15:00 EDT, [facility], Partial fill upon patient request if the prescription is for a schedule II opioid drug., 165, cm, 01/05/23 16:... Start Date: 01/07/23 Status: Ordered gabapentin 100 mg oral capsule [...] Refills, Maintenance, 10/27/21 11:40:00 EST, EC Capsule, [facility]/pharmacy #[id number], Partial fill upon patient request if the prescription is for... Start Date: 10/27/21 Stop Date: 11/26/21 Status: Ordered pravastatin 10 mg oral tablet 1 tablet = 10 mg, By Mouth, Daily, 0 Refills, Maintenance, 08/18/22 9:07:00 EST, Partial fill upon patient request if the prescription is for a schedule II opioid drug. Start Date: 08/18/22 Status: Ordered propranolol 20 mg oral tablet 1, tablet, By Mouth, 2 times a day, # 180 tablet, Refills 3, Tot. Refills 3, Maintenance, 09/25/22 12:55:00 EST, Route to Pharmacy Electronically, [facility]/pharmacy #[id number], 165, cm, 08/18/22 9:03:00 EST, Height Start Date: 09/25/22 Status: Ordered riboflavin 100 mg oral tablet See Instructions, 2 tablet By Mouth in the AM, with 1 tablet in the PM. Dose increase, # 90 tablet,5 Refills, Maintenance, 05/05/22 13:18:00 EDT, [facility]/pharmacy #[id number], Partial fill upon patient request if the prescription is for a schedule II opioid dr... Start Date: 05/05/22 Status: Ordered topiramate 25 mg oral tablet 1 tablet, By Mouth, 2 times a day, TAKE WITH TOPAMAX., # 180 tablet, 2 Refills, [id number], 165, cm, 12/04/21 14:58:00 EST, Height Start Date: 01/12/22 Status: Ordered Vistaril pamoate 25 mg oral capsule See Instructions, 1 capsule By Mouth up to 3 times a day prn migraine, # 15 tablet, 0 Refills, Maintenance, 05/26/22 14:57:00 EDT, [facility]/pharmacy #[id number], Partial fill upon patient request if the prescription is for a schedule II opioid drug., 165, cm, 08... Start Date: 05/26/22 Status: Ordered Zomig 5 mg nasal spray 1 sprays, [place], Left, Daily, PRN for migraine headache, # 6 each, 1 Refills, Maintenance, 237:12:00 EST, [place], [facility]/pharmacy #[id number], Partial fill upon patient request if the prescription is for a schedule II opioid drug., 165, cm, 11/03/22 6:57... Start Date: 11/03/22 Status: Ordered Problem List Condition Confirmation Course Effective Dates Status Health St atus Informant Alopecia Confirmed Active Anxiety Confirmed Active Easy bruising Confirmed Active Esophageal spasm Confirmed Active Fibromyalgia Confirmed Active GERD (gastroesophageal reflux disease) Confirmed Active Migraines Confirmed Active Obese class I Confirmed Active Social History Social History Type Response Smoking Status Never (less than 100 in lifetime) entered on: 03/26/21 Sex Radiology * Event Display: MRI Head, Non- BH Authored Date: * Event Display: MRI Spine, Non- BH Authored Date: Patient Care team information Care Team Related Persons Name: GONZALO GARCÍA Address: home [address] [place] [address]
--- OUTSIDE RECORDS SUMMARY | 2023-07-28 00:23 | XMS_ITS | Continuity of Care Document ---
Author Name Unknown Organization [facility] Address [address] [facility], [address] d Floor, [address] [place] [address]- Care Team Providers Care Supervisor Pullet Farm Name Role Phone Shea Goldstein MD Primary Care Physician [phone] Encounter [facility] [place] Date(s): 05/05/22 - 06/04/22 [facility] [address], [address], [address] [place] [address]- Attending Physician: Victor Hugo Gifford Admitting Physician: Victor Hugo Gifford Referring Physician: AdmtrVictor Hugo Allergies, Adverse Reactions, Alerts No Known Allergies Immunizations Given and Recorded Vaccine Date Status Refusal Reason SARS-CoV-2 mRNA (uwllkrf-krdp-tzptw) vax 11/17/21 Recorded SARS-CoV-2 mRNA (oywwhfp-txrx-fobgv) vax 10/27/21 Recorded SARS-CoV-2 (COVID-19) mRNA-1273 vaccine [...] Required Det... Start Date: 08/12/21 Status: Ordered Imitrex 100 mg oral tablet See Instructions, 1 tablet by mouth at the onset of headache. May repeat once in 2 hours. Not > 4/week., # 9 tablet, 0 Refills, Maintenance, 05/05/22 13:20:00 EDT, [facility]/pharmacy #[id number], Partial fillupon patient request if the prescription is for a sche... Start Date: 05/05/22 Status: Ordered Medrol 4 mg oral tablet See Instructions, As directed on package labeling, # 1 each, 0 Refills, Maintenance, 05/05/22 13:21:00 EDT, [facility]/pharmacy #[id number], Partial fill upon patient request if the prescription is for a scheduleII opioid drug., 165, cm, 05/05/22 12:47:00 EDT, He... Start Date: 05/05/22 Status: Ordered omeprazole 20 mg oral enteric coated capsule 1 capsule = 20 mg, By Mouth, Daily, take on empty stomach , with water, 30 min before breakfast, # 30 capsule, 0 Refills, Maintenance, 10/27/21 11:40:00 EST, EC Capsule, [facility]/pharmacy #[id number], Partial fill upon patient request if the prescription is for... Start Date: 10/27/21 Stop Date: 11/26/21 Status: Ordered riboflavin 100 mg oral tablet See Instructions, 2 tablet By Mouth in the AM, with 1 tablet in the PM. Dose increase, # 90 tablet,5 Refills, Maintenance, 05/05/22 13:18:00 EDT, [facility]/pharmacy #[id number], Partial fill upon patient request if the prescription is for a schedule II opioid dr... Start Date: 05/05/22 Status: Ordered topiramate 25 mg oral tablet 1 tablet, By Mouth, 2 times a day, TAKE WITH TOPAMAX., # 180 tablet, 2 Refills, [facility] ST[facility] 04205, 165, cm, 12/04/21 14:58:00 EST, Height Start Date: 01/12/22 Status: Ordered Vistaril pamoate 25 mg oral capsule See Instructions, 1 capsule By Mouth up to 3 times a day prn migraine, # 15 tablet, 0 Refills, Maintenance, 05/26/22 14:57:00 EDT, [facility]/pharmacy #[id number], Partial fill upon patient request if the prescription is for a schedule II opioid drug., 165, cm, 08... Start Date: 05/26/22 Status: Ordered Problem List Condition Effective Dates Status Health Status Inform ant Alopecia(Confirmed) Active Anxiety(Confirmed) Active Easy bruising(Confirmed) Active Esophageal spasm(Confirmed) Active Fibromyalgia(Confirmed) Active GERD (gastroesophageal reflu x disease)(Confirmed) Active Migraines(Confirmed) Active Social History Social History Type Response Smoking Status Never (less than 100 in lifetime) entered on: 03/26/21 Sex Care Team Personnel Name: Angelita VAUGHAN, Shea Murray Address: [address] [place] [address]
--- OUTSIDE RECORDS SUMMARY | 2023-07-28 00:23 | XMS_ITS | Continuity of Care Document ---
Author Name Unknown Organization [facility] Address Unknown Care Team Providers Care Traffic Safety Administrator Name Role Phone Chaka VAUGHAN, Katia Busch Primary Care Physician Encounter [facility] [place] Date(s): 10/23/21 - 11/22/21 [facility] Allergies, Adverse Reactions, Alerts No Known Allergies Immunizations Given and Recorded Vaccine Date Status Refusal Reason SARS-CoV-2 mRNA (gahbwtd-fmfx-upslt) vax 10/27/21 Recorded SARS-CoV-2 (COVID-19) mRNA-1273 vaccine [...] Det... Start Date: 08/12/21 Status: Ordered Imitrex 50 mg oral tablet See Instructions, 1 tablet By Mouth at onset of headache. May repeat once in 2 hours. Not > 4/ week., # 9 tablet, 0 Refills, Maintenance, 10/20/21 14:36:00 EST, [id number], Partial fill upon patient request if the prescription is for a schedul... Start Date: 10/20/21 Status: Ordered omeprazole 20 mg oral enteric coated capsule 1 capsule = 20 mg, By Mouth, Daily, take on empty stomach , with water, 30 min before breakfast, # 30 capsule, 0 Refills, Maintenance, 10/27/21 11:40:00 EST, EC Capsule, [id number], Partial fill upon patient request if the prescription is for... Start Date: 10/27/21 Stop Date: 11/26/21 Status: Ordered predniSONE 20 mg oral tablet 1 tablet = 20 mg, By Mouth, Daily in AM, # 7 tablet, 0 Refills, Maintenance, 11/10/21 10:39:00 EST,[id number], 165, cm, 10/27/21 9:34:00 EST, Height Start Date: 11/10/21 Stop Date: 11/17/21 Status: Ordered ProAir HFA 90 mcg/inh inhalation aerosol 2 puffs, Inhalation, 4 times a day, PRN Wheezing/Shortness of Breath, # 1 each, 0 Refills, Maintenance, 09/30/21 12:27:00 EST, [id number], Partial fill upon patient request if the prescription is for a schedule II opioid drug., 2 puffs Inhalat... Start Date: 09/30/21 Stop Date: 10/30/21 Status: Ordered riboflavin 100 mg oral tablet 1 tablet = 100 mg, By Mouth, 2 times a day, dose increase, # 60 tablet, 6 Refills, Maintenance, 10/20/21 14:33:00 EST, [id number], Partial fill upon patient request if the prescription is fora schedule II opioid drug., 165, cm, 09/30/21 9:51:... Start Date: 10/20/21 Stop Date: 05/18/22 Status: Ordered zonisamide 25 mg oral capsule 1 capsule = 25 mg, By Mouth, Daily at bedtime, # 30 capsule, 6 Refills, Maintenance, 10/20/21 14:34:00 EST, [id number], Partial fill upon patient request if the prescription is for a scheduleII opioid drug., 165, cm, 09/30/21 9:51:00 EST, Height Start Date: 10/20/21 Stop Date: 05/18/22 Status: Ordered Problem List Condition Effective Dates Status Health Status Inform ant Alopecia(Confirmed) Active Anxiety(Confirmed) Active Easy bruising(Confirmed) Active Esophageal spasm(Confirmed) Active Fibromyalgia(Confirmed) Active GERD (gastroesophageal reflu x disease)(Confirmed) Active Migraines(Confirmed) Active Social History Social History Type Response Smoking Status Never (less than 100 in lifetime) entered on: 03/26/21 Sex
--- OUTSIDE RECORDS SUMMARY | 2023-07-28 00:23 | XMS_ITS | Continuity of Care Document ---
Author Name Unknown Organization [facility] Address [address] [place] [address]- Care Team Providers Care Desulphuring Operator Name Role Phone Shea Goldstein MD Primary Care Physician [place] [facility] [place] 10/09/20 [facility] [address] [place] [address]- Attending Physician: Yossi Gil MD Referring Physician: Shea Goldstein MD
--- OUTSIDE RECORDS SUMMARY | 2023-07-28 00:23 | XMS_ITS | Continuity of Care Document ---
Author Name Unknown Organization [facility] Address [address] [place] [address]- Care Team Providers Care Community Development Planner Name Role Phone Katia Null MD Primary Care Physician Encounter [facility] [place] Date(s): 10/27/21 - 11/03/21 [facility] [address] [place] [address]- Encounter Diagnosis Fibromyalgia(Discharge Diagnosis) - 10/27/21 GERD (gastroesophageal reflux disease)(Discharge Diagnosis) - 10/27/21 Sore throat(Discharge Diagnosis) - 10/27/21 Hemoptysis(Discharge Diagnosis) - 10/27/21 Easy bruising(Discharge Diagnosis) - 10/27/21 Attending Physician: Katia Null MD Allergies, Adverse Reactions, Alerts No Known Allergies Immunizations Given and Recorded Vaccine Date Status Refusal Reason SARS-CoV-2 (COVID-19) mRNA-1273 vaccine 01/07/21 R ecorded [...] tablet, 0 Refills, Maintenance, 10/20/21 14:36:00 EST, [facility]/pharmacy #[id number], Partial fill upon patient request if the prescription is for a schedul... Start Date: 10/20/21 Status: Ordered omeprazole 20 mg oral enteric coated capsule 1 capsule = 20 mg, By Mouth, Daily, take on empty stomach , with water, 30 min before breakfast, # 30 capsule, 0 Refills, Maintenance, 10/27/21 11:40:00 EST, EC Capsule, [facility]/pharmacy #[id number], Partial fill upon patient request if the prescription is for... Start Date: 10/27/21 Stop Date: 11/26/21 Status: Ordered ProAir HFA 90 mcg/inh inhalation aerosol 2 puffs, Inhalation, 4 times a day, PRN Wheezing/Shortness of Breath, # 1 each, 0 Refills, Maintenance, 09/30/21 12:27:00 EST, [facility]/pharmacy #[id number], Partial fill upon patient request if the prescription is for a schedule II opioid drug., 2 puffs Inhalat... Start Date: 09/30/21 Stop Date: 10/30/21 Status: Ordered riboflavin 100 mg oral tablet 1 tablet = 100 mg, By Mouth, 2 times a day, dose increase, # 60 tablet, 6 Refills, Maintenance, 10/20/21 14:33:00 EST, [facility]/pharmacy #[id number], Partial fill upon patient request if the prescription is fora schedule II opioid drug., 165, cm, 09/30/21 9:51:... Start Date: 10/20/21 Stop Date: 05/18/22 Status: Ordered zonisamide 25 mg oral capsule 1 capsule = 25 mg, By Mouth, Daily at bedtime, # 30 capsule, 6 Refills, Maintenance, 10/20/21 14:34:00 EST, [facility]/pharmacy #[id number], Partial fill upon patient request if the prescription is for a scheduleII opioid drug., 165, cm, 09/30/21 9:51:00 EST, Height Start Date: 10/20/21 Stop Date: 05/18/22 Status: Ordered Problem List Condition Effective Dates Status Health Status Inform ant Alopecia(Confirmed) Active Anxiety(Confirmed) Active Easy bruising(Confirmed) Active Esophageal spasm(Confirmed) Active Fibromyalgia(Confirmed) Active GERD (gastroesophageal reflu x disease)(Confirmed) Active Migraines(Confirmed) Active Diagnosis Diagnosis Type Effective Dates Health Status Clinical Service Informant GERD (gastroesophageal reflux disease) Discharge Diagnosis 10/27/21 Sore throat Discharge Diagnosis 10/27/21 Fibromyalgia Discharge Diagnosis 10/27/21 Hemoptysis Discharge Diagnosis 10/27/21 Easy bruising Discharge Diagnosis 10/27/21 Vital Signs Most recent to oldest [Reference Range]: 1 Height 165 cm (10/27/21 9:34 AM) Weight 78 kg (10/27/21 9:34 AM) Oxygen Saturation [94-100 %] 100 % (10/27/21 9:34 AM) Pulse Rate [55-90 bpm] 74 bpm (10/27/21 9:34 AM) Body Mass Index [18.5-24.99] 28.65 *H* (10/27/21 9:34 AM) Blood Pressure [90-138/55-84 mm Hg] 121/ 78mm Hg (10/27/21 9:34 AM) Social History Social History Type Response Smoking Status Never (less than 100 in lifetime) entered on: 03/26/21 Sex
--- OUTSIDE RECORDS SUMMARY | 2023-07-28 00:23 | XMS_ITS | Continuity of Care Document ---
Author Name Unknown Organization [facility] Address [address] [place] [address]- Care Team Providers Care Steeple Jack Name Role Phone Kristin Munoz NP Primary Care Physician [phone] [place] [facility] [place] 07[place]21 [facility] [address] [place] [address]- Allergies, Adverse Reactions, Alerts Substance Reaction Severity Status NKA Active Immunizations Given and Recorded Vaccine Date Status Refusal Reason SARS-CoV-2 (COVID-19) mRNA-3517 vaccine 01/07/21 R ecorded Medications duloxetine 60 [...] IF NEEDED., # 9 tablet, 0 Refills, [id number], 165, cm, 07/10/21 12:25:00 EDT, Height Start Date: 07/14/21 Status: Ordered topiramate 25 mg oral tablet 1 tablet, By Mouth, 2 times a day, TAKE WITH TOPAMAX 50MG FOR TOTAL DAILY DOSE OF 75MG, # 180 tablet, 0 Refills, [id number], 165, cm, 07/10/21 12:25:00 EDT, Height Start [...]
--- OUTSIDE RECORDS SUMMARY | 2023-07-28 00:23 | XMS_ITS | Continuity of Care Document ---
Author Name Unknown Organization [facility] Address [address] [place] [address]- Care Team Providers Care Daycare Provider Name Role Phone Chaka VAUGHAN, Katia Busch Primary Care Physician ( [phone] Encounter [facility] [place] Date(s): 12/01/21 - 12/31/21 [facility] [address] [place] [address]- Allergies, Adverse Reactions, Alerts No Known Allergies Immunizations Given and Recorded Vaccine Date Status Refusal Reason SARS-CoV-2 mRNA (ippqtpy-xovn-jmtuu) vax 11/17/21 Recorded SARS-CoV-2 mRNA (gjvvkei-lzff-zsvxe) vax 10/27/21 Recorded SARS-CoV-2 (COVID-19) mRNA-1273 vaccine [...] tablet, 6 Refills, Maintenance, 10/20/21 14:33:00 EST, [facility]/pharmacy #[id number], Partial fill upon patient request [...]
--- OUTSIDE RECORDS SUMMARY | 2023-07-28 00:23 | XMS_ITS | Continuity of Care Document ---
Author Name Unknown Organization [facility] Address [address] [place] [address]- Care Team Providers Care Rock Singer Name Role Phone Alexander DICK, Kristin Primary Care Physician Encounter [facility] [place] [id number] Date(s): 03/26/21 - 04/02/21 [facility] [address] [place] [address]- Encounter Diagnosis Encounter to establish care(Discharge Diagnosis) - 03/25/21 Migraines(Discharge Diagnosis) - 03/25/21 Anxiety(Discharge Diagnosis) - 03/26/21 Alopecia(Discharge Diagnosis) - 03/26/21 Fibromyalgia(Discharge Diagnosis) - 03/26/21 Attending Physician: Ximena VAUGHAN, Ta Rey Referring Physician: Kristin Munoz NP Allergies, Adverse Reactions, Alerts Substance Reaction Severity Status NKA Active Immunizations Given and Recorded Vaccine Date Status Refusal Reason SARS-CoV-2 (COVID-19) mRNA-1273 vaccine 01/07/21 R ecorded Medications Amerge 2.5 mg oral tablet See Instructions, 1 tablet By Mouth at onset of headache. May repeat once in 4 hours if needed., # 9 tablet, 0 Refills, Maintenance, 03/20/21 9:51:00 EDT, [facility]/pharmacy #[id number], Partial fill upon patient request if the prescription is for a schedule II o... Start Date: 03/20/21 Status: Ordered duloxetine 60 mg oral enteric coated capsule 1 capsule = 60 mg, By Mouth, Daily, # 30 capsule, 0 Refills, Maintenance, 03/26/21 7:50:00 EDT, [facility], Partial fill upon patient request if the prescription is for a schedule II opioid drug. Start Date: 03/26/21 Status: Ordered meloxicam 7.5 mg oral tablet TAKE 1 TABLET BY MOUTH EVERY DAY FOR 90 DAYS Start Date: 03/26/21 Status: Ordered Topamax 25 mg oral tablet 1 tablet = 25 mg, By Mouth, 2 times a day, Take with topamax 50 mg for total daily dose of 75 mg bid, # 60 tablet, 3 Refills, Maintenance, 03/20/21 9:49:00 EDT, [id number], Partial fill upon patient request if the prescription is for a schedul... Start Date: 03/20/21 Status: Ordered Problem List Condition Effective Dates Status Health Status Inform ant Alopecia(Confirmed) Active Anxiety(Confirmed) Active Fibromyalgia(Confirmed) Active Migraines(Confirmed) Active Diagnosis Diagnosis Type Effective Dates Health Status Clinical Service Informant Encounter to establish care Discharge Diagnosis 03/25/21 Migraines Discharge Diagnosis 03/25/21 Anxiety Discharge Diagnosis 03/26/21 Alopecia Discharge Diagnosis 03/26/21 Fibromyalgia Discharge Diagnosis 03/26/21 Procedures Procedure Date Related Diagnosis Body Site Status Hysterectomy Completed Social History Social History Type Response Smoking Status Never (less than 100 in lifetime) entered on: 03/26/21 Sex
--- OUTSIDE RECORDS SUMMARY | 2023-07-28 00:23 | XMS_ITS | Continuity of Care Document ---
Author Name Unknown Organization [facility] Address [address] [facility], [address] Floor, [address] [place] [address]- Care Team Providers Care Corrective And Manual Arts Therapist Name Role Phone Shea Goldstein MD Primary Care Physician [phone] Encounter [facility] Date(s): 05/26/22 - 06/25/22 [facility] [address], [address]rd Floor, [address] [place] [address]- [place] Allergies, Adverse Reactions, Alerts No Known Allergies Immunizations Given and Recorded Vaccine Date Status Refusal Reason SARS-CoV-2 mRNA (bdxbhwq-friz-lvsce) vax 11/17/21 Recorded SARS-CoV-2 mRNA (tjibnds-lebj-pnlzu) vax 10/27/21 Recorded SARS-CoV-2 (COVID-19) mRNA-1273 vaccine [...] tablet, 0 Refills, Maintenance, 05/05/22 13:20:00 EDT, [facility]/pharmacy #[id number], Partial fillupon patient request if the prescription is for a sche... Start Date: 05/05/22 Status: Ordered Medrol 4 mg oral tablet See Instructions, As directed on package labeling, # 1 each, 0 Refills, Maintenance, 05/05/22 13:21:00 EDT, [facility]/pharmacy #[id number], Partial fill upon patient request [...] Refills, Maintenance, 10/27/21 11:40:00 EST, EC Capsule, [facility]/pharmacy #[id number], Partial fill upon patient request if the prescription is for... Start Date: 10/27/21 Stop Date: 11/26/21 Status: Ordered riboflavin 100 mg oral tablet See Instructions, 2 tablet By Mouth in the AM, with 1 tablet in the PM. Dose increase, # 90 tablet,5 Refills, Maintenance, 05/05/22 13:18:00 EDT, [id number], Partial fill upon patient request if the prescription is for a schedule II opioid dr... Start Date: 05/05/22 Status: Ordered topiramate 25 mg oral tablet 1 tablet, By Mouth, 2 times a day, TAKE WITH TOPAMAX., # 180 tablet, 2 Refills, [facility] STORE [id number], 165, cm, 12/04/21 14:58:00 EST, Height Start Date: 01/12/22 Status: Ordered Vistaril pamoate 25 mg oral capsule See Instructions, 1 capsule By Mouth up to 3 times a day prn migraine, # 15 tablet, 0 Refills, Maintenance, 05/26/22 14:57:00 EDT, [id number], Partial fill upon patient request if the prescription is for a schedule II opioid drug., 165, cm, 08... Start Date: 05/26/22 Status: Ordered Problem List Condition Confirmation Course Effective Dates Status Health St atus Informant Alopecia Confirmed Active Anxiety Confirmed Active Easy bruising Confirmed Active Esophageal spasm Confirmed Active Fibromyalgia Confirmed Active GERD (gastroesophageal reflux disease) Confirmed Active Migraines Confirmed Active Social History Social History Type Response Smoking Status Never (less than 100 in lifetime) entered on: 03/26/21 Sex Patient Care team information Personnel Name: Shea Goldstein MD Address: Address: [address] [place] [id number]
--- OUTSIDE RECORDS SUMMARY | 2023-07-28 00:23 | XMS_ITS | Continuity of Care Document ---
Author Name Unknown Organization [facility] Address [address] [place] [address]- Care Team Providers Care Mining Consultant Name Role Phone Shea Goldstein MD Primary Care Physician Encounter [facility] Date(s): 10/16/19 - 10/23/[address] [address]- [facility] Attending Physician: Shea Goldstein MD
--- OUTSIDE RECORDS SUMMARY | 2023-07-28 00:23 | XMS_ITS | Continuity of Care Document ---
Author Name Unknown Organization [facility] Address [address] [place] [address]- Care Team Providers Care Sales Account Executive Name Role Phone Chaka VAUGHAN, Katia Busch Primary Care Physician Encounter [facility] [place] Date(s): 12/01/21 - 01/01/22 [facility] [address] [place] [address]- Attending Physician: Herb DICK, Tonya Rey Referring Physician: Chaka VAUGHAN, Katia Busch Allergies, Adverse Reactions, Alerts No Known Allergies Immunizations Given and Recorded Vaccine Date Status Refusal Reason SARS-CoV-2 mRNA (tnfnhvk-ondu-xrbdg) vax 11/17/21 Recorded SARS-CoV-2 mRNA (nyrltos-qhof-spxuy) vax 10/27/21 Recorded SARS-CoV-2 (COVID-19) mRNA-1273 vaccine [...] Refills, Maintenance, 10/27/21 11:40:00 EST, EC Capsule, [facility]/pharmacy #[id number], Partial fill upon patient request if the prescription is for... Start Date: 10/27/21 Stop Date: 11/26/21 Status: Ordered riboflavin 100 mg oral tablet 1 tablet = 100 mg, By Mouth, 2 times a day, dose increase, # 60 tablet, 6 Refills, Maintenance, 10/20/21 14:33:00 EST, [facility]/pharmacy #[id number], Partial fill upon [...]
--- OUTSIDE RECORDS SUMMARY | 2023-07-28 00:23 | XMS_ITS | Continuity of Care Document ---
Author Name Unknown Organization [facility] Address [address] [place] [address]- Care Team Providers Care Meat Blender Name Role Phone Chaka VAUGHAN, Katia Busch Primary Care Physician ( [phone] Encounter [facility] [place] Date(s): 01/28/22 - 02/27/22 [facility] [address] [place], [place] [address] Attending Physician: Victor Hugo Gifford Admitting Physician: AdmtrVictor Hugo Referring Physician: Admtr, Ar8 Allergies, Adverse Reactions, Alerts No Known Allergies Immunizations Given and Recorded Vaccine Date Status Refusal Reason SARS-CoV-2 mRNA (pwvklav-eyqd-qcdcf) vax 11/17/21 Recorded SARS-CoV-2 mRNA (aycwsgs-fpmv-motbq) vax 10/27/21 Recorded SARS-CoV-2 (COVID-19) mRNA-1273 vaccine [...] Date: 10/20/21 Stop Date: 05/18/22 Status: Ordered topiramate 25 mg oral tablet 1 tablet, By Mouth, 2 times a day, TAKE WITH TOPAMAX., # 180 tablet, 2 Refills, [id number], 165, cm, 12/04/21 14:58:00 EST, Height Start Date: 01/12/22 Status: Ordered Problem List Condition Effective Dates Status Health Status Inform ant Alopecia(Confirmed) Active Anxiety(Confirmed) Active Easy bruising(Confirmed) Active Esophageal spasm(Confirmed) Active Fibromyalgia(Confirmed) Active GERD (gastroesophageal reflu x disease)(Confirmed) Active Migraines(Confirmed) Active Social History Social History Type Response Smoking Status Never (less than 100 in lifetime) entered on: 03/26/21 Sex
--- OUTSIDE RECORDS SUMMARY | 2023-07-28 00:23 | XMS_ITS | Continuity of Care Document ---
Author Name Unknown Organization [facility] Address [address] [place] [address]- Care Team Providers Care Rn Transport Name Role Phone Alexander DICK, Kristin Primary Care Physician Encounter [facility] [place] Date(s): 06/23/21 - 06/30/21 [facility] [address] [place] [address]- Encounter Diagnosis Fibromyalgia(Discharge Diagnosis) - 06/23/21 GERD (gastroesophageal reflux disease)(Discharge Diagnosis) - 06/23/21 Easy bruising(Discharge Diagnosis) - 06/23/21 Chronic joint pain(Discharge Diagnosis) - 06/23/21 Anxiety(Discharge Diagnosis) - 06/23/21 Attending Physician: Kristin Munoz NP Allergies, Adverse Reactions, Alerts Substance Reaction Severity Status NKA Active Immunizations Given and Recorded Vaccine Date Status Refusal Reason SARS-CoV-2 (COVID-19) mRNA-1695 vaccine 01/07/21 R ecorded Medications Amerge 2.5 mg oral tablet See Instructions, 1 tablet By Mouth at onset of headache. May repeat once in 4 hours if needed., # 9 tablet, 0 Refills, Maintenance, 03/20/21 9:51:00 EDT, [facility]/pharmacy #[id number], Partial fill upon patient request [...] tablet, 3 Refills, Maintenance, 03/20/21 9:49:00 EDT, [facility]/pharmacy #[id number], Partial fill upon patient request if the prescription is for a schedul... Start Date: 03/20/21 Status: Ordered VITAMIN B-2 100 MG TABLET [...] Effective Dates Health Status Clinical Service Informant Fibromyalgia Discharge Diagnosis 06/23/21 Anxiety Discharge Diagnosis 06/23/21 Chronic joint pain Discharge Diagnosis 06/23/21 Easy bruising Discharge Diagnosis 06/23/21 GERD (gastroesophageal reflux disease) Discharge Diagnosis 06/23/21 Vital Signs Most recent to oldest [Reference Range]: 1 Height 165 cm (06/23/21 3:35 PM) Weight 76.8 kg (06/23/21 3:35 PM) Oxygen Saturation [94-100 %] 100 % (06/23/21 3:35 PM) Pulse Rate [55-90 bpm] 88 bpm (06/23/21 3:35 PM) Body Mass Index [18.5-24.99] 28.21 *H* (06/23/21 3:35 PM) Blood Pressure [90-138/55-84 mm Hg] 117/ 74mm Hg (06/23/21 3:35 PM) Respiratory Rate [16-30 br/min] 16 br/mi n (06/23/21 3:35 PM) Mode of Delivery (Oxygen) Room air (06/23/21 3:35 PM) Blood pressure sites Arm, right (06/23/21 3:35 PM) Weight Obtained Via Standing scale (06/23/21 3:35 PM) Social History Social History Type Response Smoking Status Never (less than 100 in lifetime) entered on: 03/26/21 Sex
--- OUTSIDE RECORDS SUMMARY | 2023-07-28 00:23 | XMS_ITS | Continuity of Care Document ---
Author Name Unknown Organization [facility] Address [address] [facility], 3r d Floor, [address] [place] [address]- Encounter [facility] [place] Date(s): 02/16/23 - 06/16/23 [facility] [address] [place], [address]rd Floor, [address] [place] [address]- Attending Physician: Jerome Mcdermott MD Admitting Physician: Jerome Mcdermott MD Allergies, Adverse Reactions, Alerts Substance Reaction Severity Status Peanuts Active Immunizations Given and Recorded Vaccine Date Status Refusal Reason SARS-CoV-2 mRNA (gnkpqjc-bjvr-learv) vax 11/17/21 Recorded SARS-CoV-2 mRNA (gklmkrm-ncdm-hppef) vax 10/27/21 Recorded SARS-CoV-2 (COVID-19) mRNA-1273 vaccine [...] 0 Refills, Soft Stop, 01/07/23 15:15:00 EDT, [facility], Partial fill upon patient request if the prescription is for aschedule II opioid drug., 165, cm, 01/05/23 16:06:0... Start Date: 01/07/23 Status: Ordered Emgality Prefilled Pen 120 mg/mL subcutaneous solution = 120 mg, Subcutaneous Injection, Once, Maintenance Dose, # 1 kit, 5 Refills, Soft Stop, 01/07/23 15:15:00 EDT, [facility], Partial fill upon patient request [...] Refills, Maintenance, 10/27/21 11:40:00 EST, EC Capsule, [facility]/pharmacy #[id number], Partial fill upon patient [...] 09/25/22 12:55:00 EST, Route to Pharmacy Electronically, [facility]/pharmacy #[id number], 165, cm, 08/18/22 9:03:00 EST, Height Start Date: 09/25/22 Status: Ordered riboflavin 100 mg oral tablet See Instructions, 2 tablet By Mouth in the AM, with 1 tablet in the PM. Dose increase, # 90 tablet,5 Refills, Maintenance, 05/05/22 13:18:00 EDT, [facility]/pharmacy #[id number], Partial fill upon patient request if the prescription is for a schedule II opioid dr... Start Date: 05/05/22 Status: Ordered topiramate 25 mg oral tablet 1 tablet, By Mouth, 2 times a day, TAKE WITH TOPAMAX., # 180 tablet, 2 Refills, [id number], 165, cm, 12/04/21 14:58:00 EST, Height Start Date: 01/12/22 Status: Ordered Vistaril pamoate 25 mg oral capsule See Instructions, 1 capsule By Mouth up to 3 times a day prn migraine, # 15 tablet, 0 Refills, Maintenance, 05/26/22 14:57:00 EDT, [facility]/pharmacy #[id number], Partial fill upon patient request if the prescription is for a schedule II opioid drug., 165, cm, 08... Start Date: 05/26/22 Status: Ordered Zomig 5 mg nasal spray 1 sprays, Naris, Left, Daily, PRN for migraine headache, # 6 each, 1 Refills, Maintenance, 237:12:00 EST, [place], [facility]/pharmacy #[id number], Partial fill upon patient [...] on: 03/26/21 Sex Patient Care team information Care Team Related Persons Name: GONZALO GARCÍA Address: home [address] [place] [address]
--- OUTSIDE RECORDS SUMMARY | 2023-07-28 00:23 | XMS_ITS | Continuity of Care Document ---
Author Name Unknown Organization [facility] Address [address] [facility], [address]r d Floor, [address] [place] [address]- Encounter [facility] [place] Date(s): 10/09/22 - 11/08/22 [facility] [address], [address], [address] [place] [address]- Allergies, Adverse Reactions, Alerts Substance Reaction Severity Status Peanuts Active Immunizations Given and Recorded Vaccine Date Status Refusal Reason SARS-CoV-2 mRNA (sbuvvwm-ahnl-xtrxj) vax 11/17/21 Recorded SARS-CoV-2 mRNA (lzzlnpy-zagz-erqnt) vax 10/27/21 Recorded SARS-CoV-2 (COVID-19) mRNA-1273 vaccine [...] Refills, Maintenance, 10/27/21 11:40:00 EST, EC Capsule, [facility]/pharmacy #[id number], Partial fill upon patient request [...] 09/25/22 12:55:00 EST, Route to Pharmacy Electronically, [facility]/pharmacy #[id number], 165, cm, 08/18/22 9:03:00 EST, Height Start Date: 09/25/22 Status: Ordered riboflavin 100 mg oral tablet See Instructions, 2 tablet By Mouth in the AM, with 1 tablet in the PM. Dose increase, # 90 tablet,5 Refills, Maintenance, 05/05/22 13:18:00 EDT, [facility]/pharmacy #[id number], Partial fill upon patient request if the prescription is for a schedule II opioid dr... Start Date: 05/05/22 Status: Ordered topiramate 25 mg oral tablet 1 tablet, By Mouth, 2 times a day, TAKE WITH TOPAMAX., # 180 tablet, 2 Refills, [facility] STORE [id number], 165, cm, 12/04/21 14:58:00 EST, Height Start Date: 01/12/22 Status: Ordered Vistaril pamoate 25 mg oral capsule See Instructions, 1 capsule By Mouth up to 3 times a day prn migraine, # 15 tablet, 0 Refills, Maintenance, 05/26/22 14:57:00 EDT, [facility]/pharmacy #[id number], Partial fill upon patient request if the prescription is for a schedule II opioid drug., 165, cm, 08... Start Date: 05/26/22 Status: Ordered Zomig 5 mg nasal spray 1 sprays, Naris, Left, Daily, PRN for migraine headache, # 6 each, 1 Refills, Maintenance, :12:00 EST, [place], [facility]/pharmacy #[id number], Partial fill upon patient request [...] Persons Name: GONZALO GARCÍA Address: home [address] [place] [address]
--- OUTSIDE RECORDS SUMMARY | 2023-07-28 00:23 | XMS_ITS | Continuity of Care Document ---
Author Name Unknown Organization [facility] Address [address] [place] [address]- Care Team Providers Care Division Leader Name Role Phone Chaka VAUGHAN, Katia Busch Primary Care Physician Encounter [facility] Date(s): 12/22/21 - 01/21/22 [facility] [address] [place] [address]- Allergies, Adverse Reactions, Alerts No Known Allergies Immunizations Given and Recorded Vaccine Date Status Refusal Reason SARS-CoV-2 mRNA (wghgnpv-whdy-omymz) vax 11/17/21 Recorded SARS-CoV-2 mRNA (zuyyrki-hnqx-rnrpw) vax 10/27/21 Recorded SARS-CoV-2 (COVID-19) mRNA-1273 vaccine [...] # 180 tablet, 2 Refills, [facility], 165, cm, 12/04/21 14:58:00 EST, Height Start [...]
--- OUTSIDE RECORDS SUMMARY | 2023-07-28 00:23 | XMS_ITS | Continuity of Care Document ---
Author Name Unknown Organization [facility] Address [address] [facility], [address]r d Floor, [address] [place] [address]- Care Team Providers Care Recreational Facilities Motel Manager Name Role Phone Shea Goldstein MD Primary Care Physician [phone] Encounter [facility] [place] Date(s): 02/07/21 - 03/09/21 [facility] [address] [facility], 3rd Floor, [address] [place] [address]
--- OUTSIDE RECORDS SUMMARY | 2023-07-28 00:23 | XMS_ITS | Continuity of Care Document ---
Author Name Unknown Organization [facility] Address [address] [place] [address]- Care Team Providers Care Historical Society Director Name Role Phone Chaka VAUGHAN, Katia Busch Primary Care Physician En[place] [facility] [place] Date(s): 10/22/21 - 11/21/21 [facility] [address] [place] [address]- Allergies, Adverse Reactions, Alerts No Known Allergies Immunizations Given and Recorded Vaccine Date Status Refusal Reason SARS-CoV-2 mRNA (incopjn-quxu-uhjee) vax 10/27/21 Recorded SARS-CoV-2 (COVID-19) mRNA-1273 vaccine [...] tablet, 0 Refills, Maintenance, 10/20/21 14:36:00 EST, [facility]/pharmacy #[id number], Partial fill upon patient request if the prescription is for a schedul... Start Date: 10/20/21 Status: Ordered omeprazole 20 mg oral enteric coated capsule 1 capsule = 20 mg, By Mouth, Daily, take on empty stomach , with water, 30 min before breakfast, # 30 capsule, 0 Refills, Maintenance, 10/27/21 11:40:00 EST, EC Capsule, [facility]/pharmacy #[id number], Partial fill upon patient request if the prescription is for... Start Date: 10/27/21 Stop Date: 11/26/21 Status: Ordered predniSONE 20 mg oral tablet 1 tablet = 20 mg, By Mouth, Daily in AM, # 7 tablet, 0 Refills, Maintenance, 11/10/21 10:39:00 EST,[facility]/pharmacy #[id number], 165, cm, 10/27/21 9:34:00 EST, Height Start Date: 11/10/21 Stop Date: 11/17/21 Status: Ordered ProAir HFA 90 mcg/inh inhalation aerosol 2 puffs, Inhalation, 4 times a day, PRN Wheezing/Shortness of Breath, # 1 each, 0 Refills, Maintenance, 09/30/21 12:27:00 EST, [facility]/pharmacy #[id number], Partial fill upon patient [...] capsule, 6 Refills, Maintenance, 10/20/21 14:34:00 EST, [facility]/pharmacy #[id number], Partial fill upon patient [...]
--- OUTSIDE RECORDS SUMMARY | 2023-07-28 00:24 | XMS_ITS | Continuity of Care Document ---
Author Name Unknown Organization [facility] Address Unknown Care Team Providers Care Applied Technologist Name Role Phone Alexander DICK, Kristin Primary Care Physician [phone] Encounter [facility] [place] Date(s): 04/03/21 - 08/01/21 [facility] Attending Physician: Logan Blanca Admitting Physician: Logan Blanca Referring Physician: Evie Goldstein MDmapatsy Murray Allergies, Adverse Reactions, Alerts Substance Reaction Severity Status NKA Active Immunizations Given and Recorded Vaccine Date Status Refusal Reason SARS-CoV-2 (COVID-19) [id number] vaccine 01/07/21 R ecorded Medications duloxetine 60 [...] IF NEEDED., # 9 tablet, 0 Refills, [facility], 165, cm, 07/10/21 12:25:00 EDT, Height Start Date: 07/14/21 Status: Ordered topiramate 25 mg oral tablet 1 tablet, By Mouth, 2 times a day, TAKE WITH TOPAMAX 50MG FOR TOTAL DAILY DOSE OF 75MG, # 180 tablet, 0 Refills, [facility], 165, cm, 07/10/21 12:25:00 EDT, Height Start [...]
--- OUTSIDE RECORDS SUMMARY | 2023-07-28 00:24 | XMS_ITS | Continuity of Care Document ---
Author Name Unknown Organization [facility] Address [address] [facility], 3r d Floor, [address] [place] [address] En[place] [facility] [place] Date(s): 12/02/22 - 01/01/23 [facility] [address] [facility], 3rd Floor, [address] [place] [address] Attending Physician: Victor Hugo Gifford Admitting Physician: Admtr, Victor Hugo Referring Physician: Admtr, Ar8 Allergies, Adverse Reactions, Alerts Substance Reaction Severity Status Peanuts Active Immunizations Given and Recorded Vaccine Date Status Refusal Reason SARS-CoV-2 mRNA (ozohlqk-swkr-bvqhx) vax 11/17/21 Recorded SARS-CoV-2 mRNA (nqsegsn-oyiu-kgofi) vax 10/27/21 Recorded SARS-CoV-2 (COVID-19) mRNA-1273 vaccine [...] 10/27/21 11:40:00 EST, EC Capsule, [facility]/pharmacy #[id number], Partial fill upon patient request if [...] 09/25/22 12:55:00 EST, Route to Pharmacy Electronically, [facility]/pharmacy #[id number], 165, cm, 08/18/22 9:03:00 EST, Height Start Date: 09/25/22 Status: Ordered riboflavin 100 mg oral tablet See Instructions, 2 tablet By Mouth in the AM, with 1 tablet in the PM. Dose increase, # 90 tablet,5 Refills, Maintenance, 05/05/22 13:18:00 EDT, [facility]/pharmacy #[id number], Partial fill upon patient request if the prescription is for a schedule II opioid dr... Start Date: 05/05/22 Status: Ordered topiramate 25 mg oral tablet 1 tablet, By Mouth, 2 times a day, TAKE WITH TOPAMAX., # 180 tablet, 2 Refills, [facility] 71754, 165, cm, 12/04/21 14:58:00 EST, Height Start Date: 01/12/22 Status: Ordered Vistaril pamoate 25 mg oral capsule See Instructions, 1 capsule By Mouth up to 3 times a day prn migraine, # 15 tablet, 0 Refills, Maintenance, 05/26/22 14:57:00 EDT, [facility]/pharmacy #[id number], Partial fill upon patient request if the prescription is for a schedule II opioid drug., 165, cm, 08... Start Date: 05/26/22 Status: Ordered Zomig 5 mg nasal spray 1 sprays, Naris, Left, Daily, PRN for migraine headache, # 6 each, 1 Refills, Maintenance, 237:12:00 EST, [place], [id number], Partial fill upon patient request [...] 100 in lifetime) entered on: 03/26/21 Sex Note * Event Display: MRI Head, Non- BH Authored Date: * Event Display: MRI Spine, Non- BH Authored Date: Patient Care team information Care Team Related Persons Name: GONZALO GARCÍA Address: home [address] [place] [address]
--- OUTSIDE RECORDS SUMMARY | 2023-07-28 00:24 | XMS_ITS | Continuity of Care Document ---
Author Name Unknown Organization [facility] Address [address], [address], [address] [place] [address]- [place] [facility] [place]s): 09/15/22 - 01/01/23 [facility] [address], [address], [address] [place] [address] Attending Physician: Jerome Mcdermott MD Admitting Physician: Jerome Mcdermott MD Allergies, Adverse Reactions, Alerts Substance Reaction Severity Status Peanuts Active Immunizations Given and Recorded Vaccine Date Status Refusal Reason SARS-CoV-2 mRNA (halsaeq-mfrz-fbcmh) vax 11/17/21 Recorded SARS-CoV-2 mRNA (kkdaadg-ycdr-ldgxe) vax 10/27/21 Recorded SARS-CoV-2 (COVID-19) mRNA-1273 vaccine [...] Refills, Maintenance, 10/27/21 11:40:00 EST, EC Capsule, [facility]/pharmacy #[id number], Partial fill upon patient [...] 09/25/22 12:55:00 EST, Route to Pharmacy Electronically, [facility]/pharmacy #[id number], 165, cm, 08/18/22 9:03:00 EST, Height Start Date: 09/25/22 Status: Ordered riboflavin 100 mg oral tablet See Instructions, 2 tablet By Mouth in the AM, with 1 tablet in the PM. Dose increase, # 90 tablet,5 Refills, Maintenance, 05/05/22 13:18:00 EDT, [facility]/pharmacy #[id number], Partial fill upon patient request if the prescription is for a schedule II opioid dr... Start Date: 05/05/22 Status: Ordered topiramate 25 mg oral tablet 1 tablet, By Mouth, 2 times a day, TAKE WITH TOPAMAX., # 180 tablet, 2 Refills, [facility] STORE 13633, 165, cm, 12/04/21 14:58:00 EST, Height Start Date: 01/12/22 Status: Ordered Vistaril pamoate 25 mg oral capsule See Instructions, 1 capsule By Mouth up to 3 times a day prn migraine, # 15 tablet, 0 Refills, Maintenance, 05/26/22 14:57:00 EDT, [facility]/pharmacy #[id number], Partial fill upon patient request if the prescription is for a schedule II opioid drug., 165, cm, 08... Start Date: 05/26/22 Status: Ordered Zomig 5 mg nasal spray 1 sprays, Naris, Left, Daily, PRN for migraine headache, # 6 each, 1 Refills, Maintenance, :12:00 EST, [place], [facility]/pharmacy #[id number], Partial fill upon patient [...] Persons Name: GONZALO GARCÍA Address: home [address] [place] [address]
--- OUTSIDE RECORDS SUMMARY | 2023-07-28 00:24 | XMS_ITS | Continuity of Care Document ---
Author Name Unknown Organization [facility] Address [address] [place] [address]- Care Team Providers Care Mold Blower Name Role Phone Chaka VAUGHAN, Katia Busch Primary Care Physician ( [phone] Encounter [facility] [place] Date(s): 12/31/21 - 01/30/22 [facility] [address] [place] [address]- Attending Physician: Victor Hugo Gifford Admitting Physician: AdmtrVictor Hugo Referring Physician: Admtr, Ar8 Allergies, Adverse Reactions, Alerts No Known Allergies Immunizations Given and Recorded Vaccine Date Status Refusal Reason SARS-CoV-2 mRNA (hvwikeg-teda-rnikd) vax 11/17/21 Recorded SARS-CoV-2 mRNA (bjjmygx-ratd-aiqfi) vax 10/27/21 Recorded SARS-CoV-2 (COVID-19) mRNA-1273 vaccine [...] # 180 tablet, 2 Refills, [id number], 165, cm, 12/04/21 14:58:00 EST, Height Start [...]
--- OUTSIDE RECORDS SUMMARY | 2023-07-28 00:24 | XMS_ITS | Continuity of Care Document ---
Author Name Unknown Organization [facility] Address [address] [place] [address]- Care Team Providers Care Metal Annealer Name Role Phone Chaka VAUGHAN, Katia Busch Primary Care Physician ( [phone] [place] [facility] [place] 12/09/21 - 01/08/22 [facility] [address] [place] [address]- Allergies, Adverse Reactions, Alerts No Known Allergies Immunizations Given and Recorded Vaccine Date Status Refusal Reason SARS-CoV-2 mRNA (zofhoae-bylf-zdbrl) vax 11/17/21 Recorded SARS-CoV-2 mRNA (vbmjeoh-unek-vhrfv) vax 10/27/21 Recorded SARS-CoV-2 (COVID-19) mRNA-1273 vaccine [...] tablet, 6 Refills, Maintenance, 10/20/21 14:33:00 EST, [facility]/pharmacy #[id number], Partial fill upon patient [...]
--- OUTSIDE RECORDS SUMMARY | 2023-07-28 00:24 | XMS_ITS | Continuity of Care Document ---
Author Name Unknown Organization [facility] Address [address] [place] [address]- Care Team Providers Care Pilot Manager Name Role Phone Chaka VAUGHAN, Katia Busch Primary Care Physician Encounter [facility] [place] Date(s): 09/30/21 - 10/07/21 [facility] [address] [place] [address]- Encounter Diagnosis Cough(Discharge Diagnosis) - 09/30/21 Attending Physician: Katia Null MD Allergies, Adverse Reactions, Alerts Substance Reaction Severity Status NKA Active Immunizations Given and Recorded Vaccine Date Status Refusal Reason SARS-CoV-2 (COVID-19) mRNA-9873 vaccine 01/07/21 R ecorded Medications duloxetine 60 [...] IF NEEDED., # 9 tablet, 0 Refills, [facility] STORE 22552, 165, cm, 07/10/21 12:25:00 EDT, Height Start Date: 07/14/21 Status: Ordered ProAir HFA 90 mcg/inh inhalation aerosol 2 puffs, Inhalation, 4 times a day, PRN Wheezing/Shortness of Breath, # 1 each, 0 Refills, Maintenance, 09/30/21 12:27:00 EST, [facility]/pharmacy #[id number], Partial fill upon patient request if the prescription is for a schedule II opioid drug., 2 puffs Inhalat... Start Date: 09/30/21 Stop Date: 10/30/21 Status: Ordered topiramate 25 mg oral tablet 1 tablet, By Mouth, 2 times a day, TAKE WITH TOPAMAX 50MG FOR TOTAL DAILY DOSE OF 75MG, # 180 tablet, 0 Refills, [facility] 35348, 165, cm, 07/10/21 12:25:00 EDT, Height Start [...] Diagnosis Diagnosis Type Effective Dates Health Status Clini mandi Service Informant Cough Discharge Diagnosis 09/30/21 Vital Signs Most recent to oldest [Reference Range]: 1 Height 165 cm (09/30/21 9:51 AM) Social History Social History Type Response Smoking Status Never (less than 100 in lifetime) entered on: 03/26/21 Sex
--- OUTSIDE RECORDS SUMMARY | 2023-07-28 00:24 | XMS_ITS | Continuity of Care Document ---
Author Name Unknown Organization [facility] Address [address] [place] [address]- Care Team Providers Care Geological E Logger Name Role Phone Chaka VAUGHAN, Katia Busch Primary Care Physician Encounter [facility] [place] Date(s): 01/20/22 - 02/27/22 [facility] [address] [place] [address]- Attending Physician: Chaka VAUGHAN, Katia Busch Allergies, Adverse Reactions, Alerts No Known Allergies Immunizations Given and Recorded Vaccine Date Status Refusal Reason SARS-CoV-2 mRNA (foqjtpv-pnbs-vgstc) vax 11/17/21 Recorded SARS-CoV-2 mRNA (eoxihmg-nric-gemzz) vax 10/27/21 Recorded SARS-CoV-2 (COVID-19) mRNA-1273 vaccine [...] # 180 tablet, 2 Refills, [facility], 165, cm, 12/04/21 14:58:00 EST, Height Start [...]
--- OUTSIDE RECORDS SUMMARY | 2023-07-28 00:24 | XMS_ITS | Continuity of Care Document ---
Author Name Unknown Organization [facility] Address [address] [place] [address]- Care Team Providers Care Director Of Web Marketing Name Role Phone Chaka VAUGHAN, Katia Busch Primary Care Physician [place] [facility] [place](s): 09/09/21 - 10/09/21 [facility] [address] [place], [place] [address] Allergies, Adverse Reactions, Alerts No Known Allergies Immunizations Given and Recorded Vaccine Date Status Refusal Reason SARS-CoV-2 (COVID-19) [id number]-7340 vaccine 01/07/21 R ecorded Medications duloxetine 60 [...] IF NEEDED., # 9 tablet, 0 Refills, [facility] STORE 96756, 165, cm, 07/10/21 12:25:00 EDT, Height Start Date: 07/14/21 Status: Ordered ProAir HFA 90 mcg/inh inhalation aerosol 2 puffs, Inhalation, 4 times a day, PRN Wheezing/Shortness of Breath, # 1 each, 0 Refills, Maintenance, 09/30/21 12:27:00 EST, [facility]/pharmacy #[id number], Partial fill upon patient request if the prescription is for a schedule II opioid drug., 2 puffs Inhalat... Start Date: 09/30/21 Stop Date: 10/30/21 Status: Ordered topiramate 25 mg oral tablet 1 tablet, By Mouth, 2 times a day, TAKE WITH TOPAMAX 50MG FOR TOTAL DAILY DOSE OF 75MG, # 180 tablet, 0 Refills, 165, cm, 09/30/21 9:51:00 EST, Height Start Date: 10/09/21 Status: Ordered VITAMIN B-2 100 MG TABLET [...]
--- OUTSIDE RECORDS SUMMARY | 2023-07-28 00:24 | XMS_ITS | Continuity of Care Document ---
Author Name Unknown Organization [facility] Address [address] [place] [address]- Care Team Providers Care Optical Engineering Manager Name Role Phone Chaka VAUGHAN, Katia Busch Primary Care Physician Encounter [facility] [place] Date(s): 12/04/21 - 12/11/21 [facility] [address] [place] [address]- Encounter Diagnosis Fibromyalgia(Discharge Diagnosis) - 12/04/21 Migraines(Discharge Diagnosis) - 12/04/21 Anxiety(Discharge Diagnosis) - 12/04/21 Attending Physician: Chaka VAUGHAN, Katia Busch Allergies, Adverse Reactions, Alerts No Known Allergies Immunizations Given and Recorded Vaccine Date Status Refusal Reason SARS-CoV-2 mRNA (dhbofxa-mrzt-wcgdj) vax 11/17/21 Recorded SARS-CoV-2 mRNA (ajzoizv-izzm-enkub) vax 10/27/21 Recorded SARS-CoV-2 (COVID-19) mRNA-1273 vaccine [...] Refills, Maintenance, 10/27/21 11:40:00 EST, EC Capsule, [facility]/pharmacy #[id number], Partial fill upon patient request if the prescription is for... Start Date: 10/27/21 Stop Date: 11/26/21 Status: Ordered riboflavin 100 mg oral tablet 1 tablet = 100 mg, By Mouth, 2 times a day, dose increase, # 60 tablet, 6 Refills, Maintenance, 10/20/21 14:33:00 EST, [facility]/pharmacy #[id number], Partial fill upon patient request if [...] Diagnosis Diagnosis Type Effective Dates Health Status Cl inical Service Informant Fibromyalgia Discharge Diagnosis 12/04/21 Migraines Discharge Diagnosis 12/04/21 Anxiety Discharge Diagnosis 12/04/21 Vital Signs Most recent to oldest [Reference Range]: 1 Height 165 cm (12/04/21 2:58 PM) Weight 80 kg (12/04/21 2:58 PM) Oxygen Saturation [94-100 %] 99 % (12/04/21 2:58 PM) Pulse Rate [55-90 bpm] 79 bpm (12/04/21 2:58 PM) Body Mass Index [18.5-24.99] 29.38 *H* (12/04/21 2:58 PM) Blood Pressure [90-138/55-84 mm Hg] 128/ 73mm Hg (12/04/21 2:58 PM) Blood pressure sites Arm, right (12/04/21 2:58 PM) Social History Social History Type Response Smoking Status Never (less than 100 in lifetime) entered on: 03/26/21 Sex
--- OUTSIDE RECORDS SUMMARY | 2023-07-28 00:24 | XMS_ITS | Continuity of Care Document ---
Author Name Unknown Organization [facility] Address [address] [place] [address]- Care Team Providers Care Donor Services Team Leader Name Role Phone Alexander DICK, Kristin Primary Care Physician [phone] Encounter [facility] [place] Date(s): 07/10/21 - 07/17/21 [facility] [address] [place] [address]- Encounter Diagnosis Right ankle pain(Discharge Diagnosis) - 07/10/21 Attending Physician: Ta Bueno MD Allergies, Adverse Reactions, Alerts Substance Reaction Severity Status NKA Active Immunizations Given and Recorded Vaccine Date Status Refusal Reason SARS-CoV-2 (COVID-19) mRNA-6545 vaccine 01/07/21 R ecorded Medications duloxetine 60 [...] IF NEEDED., # 9 tablet, 0 Refills, [facility] 50044, 165, cm, 07/10/21 12:25:00 EDT, Height Start Date: 07/14/21 Status: Ordered topiramate 25 mg oral tablet 1 tablet, By Mouth, 2 times a day, TAKE WITH TOPAMAX 50MG FOR TOTAL DAILY DOSE OF 75MG, # 180 tablet, 0 Refills, [facility] 78400, 165, cm, 07/10/21 12:25:00 EDT, Height Start [...] Dates Health Status Cl inical Service Informant Right ankle pain Discharge Diagnosis 07/10/21 Vital Signs Most recent to oldest [Reference Range]: 1 Height 165 cm (07/10/21 12:25 PM) Social History Social History Type Response Smoking Status Never (less than 100 in lifetime) entered on: 03/26/21 Sex
--- OUTSIDE RECORDS SUMMARY | 2023-07-28 00:24 | XMS_ITS | Continuity of Care Document ---
Author Name Unknown Organization [facility] Address [address] [place] [address]- Care Team Providers Care Bleach Chlorinator Name Role Phone Chaka VAUGHAN, Katia Busch Primary Care Physician [place] [facility] [place] 10/28/21 - 11/27/21 [facility] [address] [place] [address]- Allergies, Adverse Reactions, Alerts No Known Allergies Immunizations Given and Recorded Vaccine Date Status Refusal Reason SARS-CoV-2 mRNA (ystlvsj-bmrq-rcfia) vax 10/27/21 Recorded SARS-CoV-2 (COVID-19) mRNA-1273 vaccine [...] tablet, 0 Refills, Maintenance, 10/20/21 14:36:00 EST, [facility]/pharmacy #[id number], Partial fill upon patient request if the prescription is for a schedul... Start Date: 10/20/21 Status: Ordered omeprazole 20 mg oral enteric coated capsule 1 capsule = 20 mg, By Mouth, Daily, take on empty stomach , with water, 30 min before breakfast, # 30 capsule, 0 Refills, Maintenance, 10/27/21 11:40:00 EST, EC Capsule, [facility]/pharmacy #[id number], Partial fill upon patient request if the prescription is for... Start Date: 10/27/21 Stop Date: 11/26/21 Status: Ordered predniSONE 20 mg oral tablet 1 tablet = 20 mg, By Mouth, Daily in AM, # 7 tablet, 0 Refills, Maintenance, 11/10/21 10:39:00 EST,[facility]/pharmacy #[id number], 165, cm, 10/27/21 9:34:00 EST, Height Start Date: 11/10/21 Stop Date: 11/17/21 Status: Ordered ProAir HFA 90 mcg/inh inhalation aerosol 2 puffs, Inhalation, 4 times a day, PRN Wheezing/Shortness of Breath, # 1 each, 0 Refills, Maintenance, 09/30/21 12:27:00 EST, [facility]/pharmacy #[id number], Partial fill upon patient [...] capsule, 6 Refills, Maintenance, 10/20/21 14:34:00 EST, [facility]/pharmacy #[id number], Partial fill upon patient [...]
--- OUTSIDE RECORDS SUMMARY | 2023-07-28 00:24 | XMS_ITS | Continuity of Care Document ---
Author Name Unknown Organization [facility] Address [address] [place] [address]- Care Team Providers Care Attache Name Role Phone Chaka VAUGHAN, Katia Busch Primary Care Physician ( [phone] [facility] [place] Date(s): 12/19/21 - 01/18/22 [facility] [address] [place] [address]- Allergies, Adverse Reactions, Alerts No Known Allergies Immunizations Given and Recorded Vaccine Date Status Refusal Reason SARS-CoV-2 mRNA (oppfrxb-fbdd-jpnui) vax 11/17/21 Recorded SARS-CoV-2 mRNA (rtgwaqd-fess-ugoje) vax 10/27/21 Recorded SARS-CoV-2 (COVID-19) mRNA-1273 vaccine [...] # 180 tablet, 2 Refills, [facility], 165, cm, 12/04/21 14:58:00 EST, Height Start [...]
--- OUTSIDE RECORDS SUMMARY | 2023-07-28 00:25 | XMS_ITS | Continuity of Care Document ---
Author Name Unknown Organization [facility] Address [address] [place] [address]- Care Team Providers Care Plateman Name Role Phone Chaka VAUGHAN, Katia Busch Primary Care Physician En[facility] [place] Date(s): 08/12/21 - 08/19/21 [facility] [address] [place] [address]- Encounter Diagnosis Fibromyalgia(Discharge Diagnosis) - 08/12/21 Paresthesias(Discharge Diagnosis) - 08/12/21 Attending Physician: Not on Staff, Attending MD Allergies, Adverse Reactions, Alerts Substance Reaction Severity Status NKA Active Immunizations Given and Recorded Vaccine Date Status Refusal Reason SARS-CoV-2 (COVID-19) mRNA-2853 vaccine 01/07/21 R ecorded Medications duloxetine 60 [...] IF NEEDED., # 9 tablet, 0 Refills, [facility]7775, 165, cm, 07/10/21 12:25:00 EDT, Height Start Date: 07/14/21 Status: Ordered topiramate 25 mg oral tablet 1 tablet, By Mouth, 2 times a day, TAKE WITH TOPAMAX 50MG FOR TOTAL DAILY DOSE OF 75MG, # 180 tablet, 0 Refills, [facility] 38760, 165, cm, 07/10/21 12:25:00 EDT, Height Start [...] Cl inical Service Informant Fibromyalgia Discharge Diagnosis 08/12/21 Paresthesias Discharge Diagnosis 08/12/21 Vital Signs Most recent to oldest [Reference Range]: 1 Height 165 cm (08/12/21 8:54 AM) Social History Social History Type Response Smoking Status Never (less than 100 in lifetime) entered on: 03/26/21 Sex
--- OUTSIDE RECORDS SUMMARY | 2023-07-28 00:25 | XMS_ITS | Continuity of Care Document ---
Author Name Unknown Organization [facility] Address [address] [place] [address]- Care Team Providers Care Director Of State Name Role Phone Chaka VAUGHAN, Katia Busch Primary Care Physician ( [phone] [place] [facility] [place] Date(s): 01/20/22 - 02/19/22 [facility] [address] [place] [address]- Allergies, Adverse Reactions, Alerts No Known Allergies Immunizations Given and Recorded Vaccine Date Status Refusal Reason SARS-CoV-2 mRNA (edobyoh-gpeg-kdpfl) vax 11/17/21 Recorded SARS-CoV-2 mRNA (ypngqyh-glav-zwoin) vax 10/27/21 Recorded SARS-CoV-2 (COVID-19) mRNA-1273 vaccine [...] # 180 tablet, 2 Refills, [facility], 165, cm, 12/04/21 14:58:00 EST, Height Start [...]
--- OUTSIDE RECORDS SUMMARY | 2023-07-28 00:25 | XMS_ITS | Continuity of Care Document ---
Author Name Unknown Organization [facility] Address Unknown Care Team Providers Care Exhaust Equipment Operator Name Role Phone Chaka VAUGHAN, Katia Busch Primary Care Physician ( [phone] Encounter [facility] [place] Date(s): 11/10/21 - 12/10/21 [facility] Allergies, Adverse Reactions, Alerts No Known Allergies Immunizations Given and Recorded Vaccine Date Status Refusal Reason SARS-CoV-2 mRNA (mhzqipt-zbbx-ptvoz) vax 11/17/21 Recorded SARS-CoV-2 mRNA (hliolua-voiq-pzlil) vax 10/27/21 Recorded SARS-CoV-2 (COVID-19) mRNA-1273 vaccine [...] tablet, 6 Refills, Maintenance, 10/20/21 14:33:00 [place], [facility]/pharmacy #[id number], Partial fill upon patient request if the [...]
--- OUTSIDE RECORDS SUMMARY | 2023-07-28 00:25 | XMS_ITS | Continuity of Care Document ---
Author Name Unknown Organization [facility] Address [address] [place] [address]- Care Team Providers Care Compression Molding Machine Operator Name Role Phone Chaka VAUGHAN, Katia Busch Primary Care Physician ( [phone] [place] [facility] [place] Date(s): 07/03/21 - 08/22/21 [facility] [address] [place] [address]- Attending Physician: Ta Bueno MD Allergies, Adverse [...] IF NEEDED., # 9 tablet, 0 Refills, [facility] 35877, 165, cm, 07/10/21 12:25:00 EDT, Height Start Date: 07/14/21 Status: Ordered topiramate 25 mg oral tablet 1 tablet, By Mouth, 2 times a day, TAKE WITH TOPAMAX 50MG FOR TOTAL DAILY DOSE OF 75MG, # 180 tablet, 0 Refills, [facility], 165, cm, 07/10/21 12:25:00 EDT, Height Start [...]
--- OUTSIDE RECORDS SUMMARY | 2023-07-28 00:25 | XMS_ITS | Continuity of Care Document ---
Author Name Unknown Organization [facility] Address Unknown Care Team Providers Care Dope House Operator Helper Name Role Phone Chaka VAUGHAN, Katia Busch Primary Care Physician ( [phone] Encounter [facility] [place] Date(s): 10/21/21 - 11/20/21 [facility] Allergies, Adverse Reactions, Alerts No Known Allergies Immunizations Given and Recorded Vaccine Date Status Refusal Reason SARS-CoV-2 mRNA (mzpqomm-hcpx-watkb) vax 10/27/21 Recorded SARS-CoV-2 (COVID-19) mRNA-1273 vaccine [...] 0 Refills, Maintenance, 10/20/21 14:36:00 EST, [id number], Partial fill upon patient request if the [...]
--- OUTSIDE RECORDS SUMMARY | 2023-07-28 00:25 | XMS_ITS | Continuity of Care Document ---
Author Name Unknown Organization [facility] Address [address] [place] [address]- Care Team Providers Care Warehouse Forklift Operator Name Role Phone Chaka VAUGHAN, Katia Busch Primary Care Physician [place] [facility] [place](s[place] 12/04/21 - 01/31/22 [facility] [address] [place] [address]- Attending Physician: Chaka VAUGHAN, Katia Busch Allergies, Adverse Reactions, Alerts No Known Allergies Immunizations Given and Recorded Vaccine Date Status Refusal Reason SARS-CoV-2 mRNA (axuvqzk-yasm-cvcin) vax 11/17/21 Recorded SARS-CoV-2 mRNA (lcbjekl-iypp-mjwmh) vax 10/27/21 Recorded SARS-CoV-2 (COVID-19) mRNA-1273 vaccine [...] # 180 tablet, 2 Refills, [facility], 165, cm, 12/04/21 14:58:00 EST, Height Start [...]
--- OUTSIDE RECORDS SUMMARY | 2023-07-28 00:25 | XMS_ITS | Continuity of Care Document ---
Author Name Unknown Organization [facility] Address [address] [place] [address]- Care Team Providers Care Diesel Engine Erector Name Role Phone Alexander DICK, Kristin Primary Care Physician [phone] Encounter [facility] [place] Date(s): 04/25/21 - 05/25/21 [facility] [address] [place] [address]- Allergies, Adverse Reactions, Alerts Substance Reaction Severity Status NKA Active Immunizations Given and Recorded Vaccine Date Status Refusal Reason SARS-CoV-2 (COVID-19) mRNA-2273 vaccine 01/07/21 R ecorded Medications Amerge 2.5 mg oral tablet See Instructions, 1 tablet By Mouth at onset of headache. May repeat once in 4 hours if needed., # 9 tablet, 0 Refills, Maintenance, 03/20/21 9:51:00 EDT, [id number], Partial fill upon patient [...] 3 Refills, Maintenance, 03/20/21 9:49:00 EDT, [id number], Partial fill upon patient request if the prescription is for a schedul... Start Date: 03/20/21 Status: Ordered Problem List Condition Effective Dates Status Health Status Inform ant Alopecia(Confirmed) Active Anxiety(Confirmed) Active Fibromyalgia(Confirmed) Active Migraines(Confirmed) Active Social History Social History Type Response Smoking Status Never (less than 100 in lifetime) entered on: 03/26/21 Sex
--- OUTSIDE RECORDS SUMMARY | 2023-07-28 00:25 | XMS_ITS | Continuity of Care Document ---
Author Name Unknown Organization [facility] Address [address] [place] [address]- Care Team Providers Care Formula Room Worker Name Role Phone Chaka VAUGHAN, Katia Busch Primary Care Physician Encounter [facility] Date(s): 11/12/21 - 11/19/21 [facility] [address] [place] [address]- Attending Physician: Katia Null MD Allergies, Adverse Reactions, Alerts No Known Allergies Immunizations Given and Recorded Vaccine Date Status Refusal Reason SARS-CoV-2 mRNA (dtuunel-[id number]-vrthq) vax 10/27/21 Recorded SARS-CoV-2 (COVID-19) mRNA-1273 vaccine [...] tablet, 0 Refills, Maintenance, 10/20/21 14:36:00 EST, [facility]/pharmacy #[id number], Partial fill upon patient request if the prescription is for a schedul... Start Date: 10/20/21 Status: Ordered omeprazole 20 mg oral enteric coated capsule 1 capsule = 20 mg, By Mouth, Daily, take on empty stomach , with water, 30 min before breakfast, # 30 capsule, 0 Refills, Maintenance, 10/27/21 11:40:00 EST, EC Capsule, [facility]/pharmacy #[id number], Partial fill upon patient request if the prescription is for... Start Date: 10/27/21 Stop Date: 11/26/21 Status: Ordered predniSONE 20 mg oral tablet 1 tablet = 20 mg, By Mouth, Daily in AM, # 7 tablet, 0 Refills, Maintenance, 11/10/21 10:39:00 EST,[facility]/pharmacy #[id number], 165, cm, 10/27/21 9:34:00 EST, Height Start Date: 11/10/21 Stop Date: 11/17/21 Status: Ordered ProAir HFA 90 mcg/inh inhalation aerosol 2 puffs, Inhalation, 4 times a day, PRN Wheezing/Shortness of Breath, # 1 each, 0 Refills, Maintenance, 09/30/21 12:27:00 EST, [facility]/pharmacy #[id number], Partial fill upon patient request if the prescription is for a schedule II opioid drug., 2 puffs Inhalat... Start Date: 09/30/21 Stop Date: 10/30/21 Status: Ordered riboflavin 100 mg oral tablet 1 tablet = 100 mg, By Mouth, 2 times a day, dose increase, # 60 tablet, 6 Refills, Maintenance, 10/20/21 14:33:00 EST, [facility]/pharmacy #[id number], Partial fill upon patient request if the prescription is fora schedule II opioid drug., 165, cm, 09/30/21 9:51:... Start Date: 10/20/21 Stop Date: 05/18/22 Status: Ordered zonisamide 25 mg oral capsule 1 capsule = 25 mg, By Mouth, Daily at bedtime, # 30 capsule, 6 Refills, Maintenance, 10/20/21 14:34:00 EST, [facility]/pharmacy #[id number], Partial fill upon patient request if the prescription is for a scheduleII opioid drug., 165, cm, 09/30/21 9:51:00 EST, Height Start Date: 10/20/21 Stop Date: 05/18/22 Status: Ordered Problem List Condition Effective Dates Status Health Status Inform ant Alopecia(Confirmed) Active Anxiety(Confirmed) Active Easy bruising(Confirmed) Active Esophageal spasm(Confirmed) Active Fibromyalgia(Confirmed) Active GERD (gastroesophageal reflu x disease)(Confirmed) Active Migraines(Confirmed) Active Vital Signs Most recent to oldest [Reference Range]: 1 Height 165 cm (11/12/21 1:52 PM) Oxygen Saturation [94-100 %] 100 % (11/12/21 1:52 PM) Pulse Rate [55-90 bpm] 87 bpm (11/12/21 1:52 PM) Blood Pressure [90-138/55-84 mm Hg] 149/ 78mm Hg *H* (11/12/21 1:52 PM) Blood pressure sites Arm, right (11/12/21 1:52 PM) Social History Social History Type Response Smoking Status Never (less than 100 in lifetime) entered on: 03/26/21 Sex
--- OUTSIDE RECORDS SUMMARY | 2023-07-28 00:25 | XMS_ITS | Continuity of Care Document ---
Author Name Unknown Organization [facility] Address [address] [place] [address]- Care Team Providers Care Mechanical Car Checker Name Role Phone Chaka VAUGHAN, Katia Busch Primary Care Physician Encounter [facility] Date(s): 12/09/21 - 01/08/22 [facility] [address] [place] [address]- Allergies, Adverse Reactions, Alerts No Known Allergies Immunizations Given and Recorded Vaccine Date Status Refusal Reason SARS-CoV-2 mRNA (diohloj-jsrs-cnqwg) vax 11/17/21 Recorded SARS-CoV-2 mRNA (zkvliqh-vqai-kwogn) vax 10/27/21 Recorded SARS-CoV-2 (COVID-19) mRNA-1273 vaccine [...] tablet, 6 Refills, Maintenance, 10/20/21 14:33:00 EST, [facility]/pharmacy #[id number], Partial fill upon patient request if [...]
--- OUTSIDE RECORDS SUMMARY | 2023-07-28 00:26 | XMS_ITS | Continuity of Care Document ---
Author Name Unknown Organization [facility] Address [address] [place] [address]- Care Team Providers Care Roll Forming Machine Set Up Mechanic Name Role Phone Chaka VAUGHAN, Katia Busch Primary Care Physician [place] [facility] [place] 12/22/21 - 01/29/22 [facility] [address] [place], [place] [address] Attending Physician: Chaka VAUGHNA, Katia Busch Allergies, Adverse Reactions, Alerts No Known Allergies Immunizations Given and Recorded Vaccine Date Status Refusal Reason SARS-CoV-2 mRNA (coqbrgb-eocf-prckz) vax 11/17/21 Recorded SARS-CoV-2 mRNA (kxgphxe-ytnh-sdkyi) vax 10/27/21 Recorded SARS-CoV-2 (COVID-19) mRNA-1273 vaccine [...] # 180 tablet, 2 Refills, [id number], 165, cm, 12/04/21 14:58:00 EST, Height Start [...]
[2023-07-28 02:41] VITALS: BMI 33.5
--- NOTE | 2023-07-28 04:39 | PC.ADMIT ---
This RN did not assess patient, admission information given by nurse to nurse report. This patient arrive from [facility] shortly after midnight. She is alert/oriented, ambulatory. She is calm, cooperative, depression 05/06. She reports active suicidal thoughts and was planning on using a gun which she has access too at her home. She states she will communicate with staff if/when she is having those thoughts. She is a good communicator and reports diagnosis of fibromyalgia and lupus, unknown if it was a recent diagnosis or if this is what is contributing to her suicidal thoughts. She has an allergy to peanut butter. She does not want NSAIDS or Tylenol d/t stomach issues. Pls refer to chart for further information/documentation. She is open to communication with staff members. Will continue to monitor overnight and re-assess with team in the morning. Patient is safe on the unit.
[2023-07-28] MEDS: DULoxetine HCl 60 MG CAPSULE.DR PO (08:10)
[2023-07-28] MEDS: Topiramate 25 MG TABLET PO (08:10)
[2023-07-28] MEDS: Pregabalin 150 MG CAPSULE PO ×2 (08:10→20:57)
[2023-07-28 08:30] VITALS: BP 135/60; PULSE 77; RESP 16; TEMP 35.8; O2SAT 100
[2023-07-28 08:59] LABS: Estimated Average Glucose 111 mg/dL; Hemoglobin A1c % 5.5 % (<6.0)
--- NOTE | 2023-07-28 09:00 | ECG_ITS ---
Test Reason : qtc check Blood Pressure : / mmHG Vent. Rate : 075 BPM Atrial Rate : 075 BPM P-R Int : 136 ms QRS Dur : 078 ms QT Int : 388 ms P-R-T Axes : 049 067 025 degrees QTc Int : 433 ms Normal sinus rhythm Normal ECG No previous ECGs available Referred By: Adeline Maradiaga Electronically Signed By:CAREY DAUGHERTY MD
[2023-07-28 09:12] LABS: Alanine Aminotransferase 16 U/L (0-31); Albumin Level 4.4 g/dL (3.5-5.0); Alkaline Phosphatase 76 U/L (39-117); Anion Gap 15 (12-20); Aspartate Amino Transferase 20 U/L (5-31); Bilirubin Total 0.5 mg/dL (0.0-1.0); Blood Urea Nitrogen 13 mg/dL (9-16); Calcium 9.9 mg/dL (8.4-10.2); Carbon Dioxide 24 mmol/L (22-29); Chloride 108 mmol/L (96-108); Cholesterol 249 mg/dL (<200); Creatinine Clr Calc Pharmacy 88.1; Estimated Glomerular Filt Rate > 60; Glucose Fasting 94 mg/dL (60-99); HDL Cholesterol 60 mg/dL (>40); LDL Cholesterol Calculated 144 mg/dL (<100); Magnesium 2.3 mg/dL (1.6-2.6); Potassium 3.8 mmol/L (3.3-5.1); Sodium 143 mmol/L (135-145); Total Protein 7.3 g/dL (6.5-8.0); Triglycerides 227 mg/dL (<150)
[2023-07-28 09:28] LABS: Free T4 (Free Thyroxine) 0.79 ng/dL (0.71-1.85); Thyroid Stimulating Hormone 4.59 uIU/mL (0.32-4.0)
[2023-07-28 09:31] LABS: Vitamin B12 373 pg/mL (200-900)
[2023-07-28 09:35] VITALS: BP 144/65; PULSE 78; O2SAT 100
--- NOTE | 2023-07-28 09:49 | P.HPPS_ITS ---
[facility] Date of Service: 07/28/23 Chief Complaint: Depression Sources of Information: patient interviewed, chart reviewed and crisis/core team assessment reviewed HPI Subjective Notes: Sun Warning and Conditional Voluntary Narrative: Patient is a 47-year-old female with history of depression, fibromyalgia and lupus with nerve damage who presents for suicidal ideation with plan to shoot herself due to worsening pain disability and subsequent worsening depression. Patient says that for most of her life she was overall in a good mood, loved working and has enjoyed a loving partnership with her of 10 years. Patient started becoming physically limited with fibromyalgia however she developed lupus about 6 months ago which has significantly affected her ability to work and even move around the house. Also around the time of her diagnosis her beloved grandmother . Her depression has continually worsened; money has become limited with only one income and though therapy was helping, they have been unable to afford the copays for her therapist. The past few weeks she has been feeling very guilty and a tremendous burden since she can help around the house at all and is watching her struggle to provide for them both financially and physically. Patient says my flare ups... I feel helpless... I can't work, I can help around the house... I have some which pain, my leg feels numb... I fall. This past week, patient was in despair, and thought that her partner would be better off without her. Her partner owns a gun and patient took the gun and contemplated suicide. Her called and interrupted this thought; her love for her partner, her 29-year-old son and the guilt of the pain her suicide would leave them kept her from attempting so patient self presented. Patient's partner has removed the gun. Patient denies any drug or alcohol abuse current, recent or past. Denies any manic episodes or behaviors. History of trauma though not discussed. 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 until medical comorbidities (fibromyalgia/lupus) rendered her disabled Has a 29-year-old son with whom she is close Has a supportive of 10 years Substance History: Denies Trauma History: Positive trauma history; did not disclose details Diagnostics Vital Signs (24Hr): Vital Signs - 24 hr 07/28/23 08:30 Temperature 96.4 F L Pulse Rate 77 Respiratory Rate 16 Blood Pressure 135/60 Pulse Oximetry 100 Oxygen Delivery Method Room Air BMI result Body Mass Index 33.5 Labs 07/28/23 07:51 Labs: Laboratory Results - last 48 hr 07/28/23 07:51 Sodium 143 Potassium 3.8 Chloride 108 Carbon Dioxide 24 Anion Gap 15 BUN 13 Creatinine 0.85 Estim Creat Clear Calc 88.1 Estimated GFR > 60 Fasting Glucose 94 Estimat Average Glucose 111 Hemoglobin A1c % 5.5 Calcium 9.9 Magnesium 2.3 Total Bilirubin 0.5 AST 20 ALT 16 Alkaline Phosphatase 76 Total Protein 7.3 Albumin 4.4 Triglycerides 227 H Cholesterol 249 H LDL Cholesterol, Calc 144 H HDL Cholesterol 60 Vitamin B12 373 TSH 4.59 H Free T4 0.79 Meds/Allergies Meds Home Medications Medication Instructions Recorded Confirmed Type duloxetine 60 mg capsule,delayed 60 mg PO DAILY 07/28/23 07/28/23 History release pravastatin 20 mg tablet 20 mg PO DAILY 07/28/23 07/28/23 History pregabalin 150 mg capsule 150 mg PO BID 07/28/23 07/28/23 History topiramate 25 mg tablet 25 mg PO DAILY 07/28/23 07/28/23 History Allergies Allergies Allergy/AdvReac Type Severity Reaction Status Date / Time No Known Allergies Allergy Verified 07/27/23 22:35 Mental Status Exam Mental Status Exam Narrative: Pt is alert and oriented; behavior is cooperative, friendly and calm; patient appears uncomfortable; dressed in hospital attire with unkempt hair but adequate hygiene; mood is described as depressed and affect congruent, downcast, tearful; eye contact appropriate; Speech is a little soft, normal rate and prosody and not pressured; psychomotor retardation present; thought process is organized and goal directed; Thought content is on guilty for being a burden, hopelessness, medical illness; otherwise pertinent to relevant topics and without any delusional content, paranoid ideations or grandiosity; positive SI though starting to become passive; no HI. There is no evidence of perceptual disturbance. Patients insight and judgment impaired Assessment & Plan Assessment & Plan (1) MDD (major depressive disorder), recurrent severe, without psychosis: Status: Acute Code(s): F33.2 - Major depressive disorder, recurrent severe without psychotic features Plan HPI: Patient is a 47-year-old female with history of depression, fibromyalgia and lupus with nerve damage who presents for suicidal ideation with plan to shoot herself due to worsening pain disability and subsequent worsening depression. Patient says that for most of her life she was overall in a good mood, loved working and has enjoyed a loving partnership with her of 10 years. Patient started becoming physically limited with fibromyalgia however she developed lupus about 6 months ago which has significantly affected her ability to work and even move around the house. Also around the time of her diagnosis her beloved grandmother . Her depression has continually worsened; money has become limited with only one income and though therapy was helping, they have been unable to afford the copays for her therapist. The past few weeks she has been feeling very guilty and a tremendous burden since she can help around the house at all and is watching her struggle to provide for them both financially and physically. Patient says my flare ups... I feel helpless... I can't work, I can help around the house... I have some which pain, my leg feels numb... I fall. This past week, patient was in despair, and thought that her partner would be better off without her. Her partner owns a gun and patient took the gun and contemplated suicide. Her called and interrupted this thought; her love for her partner, her 29-year-old son and the guilt of the pain her suicide would leave them kept her from attempting so patient self presented. Patient's partner has removed the gun. Patient denies any drug or alcohol abuse current, recent or past. Denies any manic episodes or behaviors. History of trauma though not discussed. -patient remains depressed with SI however does not want to emotionally hurt her beloved ones; open to treatment Plan: CV Q 15 minute checks Increasing Cymbalta to 90 mg Continue pregabalin 150 mg b.i.d.; recently increased from 150 daily Pursue collateral Patient has applied for disability but has struggled to obtain Patient educated on: diagnosis, medication risk/benefits, therapeutic strategies and medical condition Informed Consent: understands Reason for continued inpatient stay Substantial Risk for: harm to self and rapid decompensation Statement Statement: I have reviewed the history and physical and performed a pertinent examination on my patient. No changes have occurred unless specified. If the History and Physical was not performed prior to admission, the Hospitalist's service will be consulted for completing the admission physical. Time Spent With Patient Time: Total time managing care of this patient today ____ minutes.
--- NOTE | 2023-07-28 10:22 | PC.NURSE ---
Addendum entered by Pippa Roe RN 07/28/23 12:04: Checked orthostatic blood pressures, Lying 136/76 Sitting 139/69 Standing 115/55 Original Note: Following EKG pt states that she felt very dizzy, appeared pre-syncopal. Assisted pt to sit on floor, obtained vital signs which were normal: BP 144/65, pulse 78, O2 100%. Pt drank water and when she felt better she walked with close supervision to her room to rest. Reviewed slow positional changes, hydration, and use of call fuller if dizziness recurs. Pt states she feels back to normal and she often experiences dizziness with positional changes. Provider notified.
--- NOTE | 2023-07-28 12:01 | HO.PM.IMCN ---
History of Present Illness Data of Consult Service Date: 07/28/23 Primary Care Provider: Matt Denny PA-C HPI Reason for consult: Admission H&P Pt is a 47-year-old female with a PMH significant for?HLD, lupus, fibromyalgia, migraines, anxiety, and depression who is admitted to [facility] psychiatry unit for increasing depression over the last month with SI with plan to shoot herself with a firearm at home. Medical consult for admission H&P. ?Patient complains of experiencing some lightheadedness and dizziness with standing since this morning. The patient otherwise has no acute medical complaints at this time. Denies chest pain/pressure, palpitations. No shortness of breath. Denies fever, chills, nausea, vomiting, abdominal pain. No headache. Patient reports following closely with health and wellness sales consultant, last appointment approximately 1 month ago. Labs reviewed, remarkable for TSH slightly elevated at 4.59 with free T4 WNL at 0.79, triglycerides, cholesterol, LDL all mildly elevated. Vital signs stable, initial BP 135/60 with repeat slightly elevated at 140 4/65. EKG showed normal sinus rhythm without evidence of ST elevations or depressions. Review of Systems Review of Systems: Some lightheadedness/dizziness since this morning Patient denies any other acute medical concerns at this time [facility] Social History Household Members: Spouse Housing: House Patient Tobacco Use Status: Never used Tobacco e-Cigarette/Vaping Use: Never Used Use of substances other than those prescribed or required for medical reasons: Yes Substance Use Type: Marijuana and Caffiene Last Used Substance: Just Prior to Admission Currently Displaying Signs/Symptoms of Drug Intoxication Withdrawal: No Any prior treatment program specific to substance use: No Have you been hit, kicked, punched, or otherwise hurt by someone within the past year? If so, by whom?: No Do you feel safe in your current relationship?: Yes Is there a partner from a previous relationship who is making you feel unsafe now?: No Are you made to feel afraid or neglected: No Spiritual Healthcare Practices: unknown Voodoo Healthcare Practices: unknown Cultural Healthcare Practices: unknown Advance Directives: No Advance Directives Information Provided: No Do you have thoughts of harming others: None Do you have a plan to hurt others: No Plan Recently lost weight without trying: No Eating poorly because of decreased appetite: No Nutrition Risks: No Nutritional Risk Patient : No : No Poor oral hygiene: No Meds Allergies Allergy/AdvReac Type Severity Reaction Status Date / Time No Known Allergies Allergy Verified 07/27/23 22:35 Active Medications: Current Medications Acetaminophen (Acetaminophen 325 Mg Tablet) 650 mg PO Q6H PRN PRN Reason: Headache/Pain Mild Scale (1-3) Al Hydroxide/Mg Hydroxide (Magnesium Hydrox/Alum Hydrox 30 Ml Oral.Susp) 30 ml PO Q6H PRN PRN Reason: Heartburn/Nausea Duloxetine HCl (Duloxetine Hcl 60 Mg Capsule.Dr) 60 mg PO DAILY [facility] Last Admin: 07/28/23 08:10 Dose: 60 mg Hydroxyzine HCl (Hydroxyzine Hcl 25 Mg Tablet) 25 mg PO Q6H PRN PRN Reason: Anxiety Magnesium Hydroxide (Milk Of Magnesia 30 Ml Oral.Susp) 30 ml PO DAILY PRN PRN Reason: Constipation Pravastatin Sodium (Pravastatin Sodium 20 Mg Tablet) 20 mg PO BEDTIME [facility] Pregabalin (Pregabalin 150 Mg Capsule) 150 mg PO BID [facility] Last Admin: 07/28/23 08:10 Dose: 150 mg Topiramate (Topiramate 25 Mg Tablet) 25 mg PO DAILY [facility] Last Admin: 07/28/23 08:10 Dose: 25 mg Trazodone HCl (Trazodone Hcl 50 Mg Tablet) 50 mg PO BEDTIME MRX1 PRN PRN Reason: Insomnia Home Medications Medication Instructions Recorded Confirmed Last Taken Type duloxetine 60 mg capsule,delayed 60 mg PO DAILY 07/28/23 07/28/23 Unknown History release pravastatin 20 mg tablet 20 mg PO DAILY 07/28/23 07/28/23 Unknown History pregabalin 150 mg capsule 150 mg PO BID 07/28/23 07/28/23 07/27/23 21:06 History topiramate 25 mg tablet 25 mg PO DAILY 07/28/23 07/28/23 Unknown History Physical Exam Vital Signs and Narrative: Vital Signs: Last Vital Signs Temp 96.4 F L 07/28/23 08:30 Pulse 78 07/28/23 09:35 Resp 16 07/28/23 08:30 BP 144/65 H 07/28/23 09:35 Pulse Ox 100 07/28/23 09:35 O2 Del Method Room Air 07/28/23 09:35 BMI result Body Mass Index 33.5 Constitutional: Alert, in no acute distress. Mental Status: Oriented to person, place and time. Eyes: Pupils are equal, round, and reactive to light. Ear, Nose, and Throat: Oropharynx clear, mucous membranes moist. Ears and nose without deformities. Trachea midline. Respiratory: Clear to auscultation bilaterally. No wheezing, rales, or rhonchi. Cardiovascular: S1, S2 regular. No murmurs, rubs, or gallops. Gastrointestinal: Abdomen soft, non-tender, non-distended. Normal bowel sounds. Neurologic: Cranial nerves II-XII are grossly intact bilaterally. No focal neurological deficits. Moves all extremities spontaneously. Skin: No rashes or lesions noted. Musculoskeletal: No cyanosis or clubbing. Extremities: No edema. Results Labs 07/28/23 07:51 Labs: Laboratory Results - last 24 hr 07/28/23 07:51 Anion Gap 15 Estim Creat Clear Calc 88.1 Estimated GFR > 60 Fasting Glucose 94 Estimat Average Glucose 111 Hemoglobin A1c % 5.5 Calcium 9.9 Magnesium 2.3 Total Bilirubin 0.5 AST 20 ALT 16 Alkaline Phosphatase 76 Total Protein 7.3 Albumin 4.4 Triglycerides 227 H Cholesterol 249 H LDL Cholesterol, Calc 144 H HDL Cholesterol 60 Vitamin B12 373 TSH 4.59 H Free T4 0.79 Assessment and Plan (1) Medical clearance for psychiatric admission: Status: Acute Plan Pt is a 47-year-old female with a PMH significant for?HLD, lupus, fibromyalgia, migraines, anxiety, and depression who is admitted to [facility] psychiatry unit for increasing depression over the last month with SI with plan to shoot herself with a firearm at home. Medical consult for admission H&P. ?Patient complains of experiencing some lightheadedness and dizziness with standing since this morning. Mood disorder Plan as per Psychiatry Lightheadedness/dizziness Patient states has been experiencing some lightheadedness/dizziness that began earlier this morning Unclear etiology: BP slightly elevated at 140 4/65, does not appear to have recently started on any new medications, patient denies other systemic symptoms: No fever, chills, nausea, vomiting, diarrhea, abdominal pain Patient consulted to continue eating and drinking normally, sitting and resting at edge of bed for 20-60 seconds before trying to stand up HLD Triglycerides, total cholesterol, and LDL all mildly elevated Continue statin Subclinical hypothyroidism TSH mildly elevated at 4.59 with free T4 WNL at 0.79 Should follow up outpatient with PCP for repeat labs in 3-6 months Lupus/Fibromyalgia Continue pregabalin Migraines Continue topiramate Thank you for allowing us to participate in the care of this patient. Signing off at this time. Please let us know if there are any acute complaints or questions.
[2023-07-28] MEDS: DULoxetine HCl 30 MG CAPSULE.DR PO (16:59)
[2023-07-28 18:00] VITALS: BP 113/58; PULSE 72; RESP 16; TEMP 36.1; O2SAT 99
[2023-07-28] MEDS: Pravastatin Sodium 20 MG TABLET PO (20:57)
[2023-07-28] MEDS: hydrOXYzine HCL 25 MG TABLET PO (20:58)
[2023-07-28] MEDS: traZODone HCL 50 MG TABLET PO (20:58)
[2023-07-29 06:00] VITALS: BP 125/63; PULSE 77; RESP 16; TEMP 36.6; O2SAT 98
[2023-07-29 07:00] VITALS: BMI 33.4
[2023-07-29] MEDS: DULoxetine HCl 30 MG CAPSULE.DR 90 MG PO (08:33)
[2023-07-29] MEDS: Topiramate 25 MG TABLET PO (08:34)
[2023-07-29] MEDS: Pregabalin 150 MG CAPSULE PO ×2 (08:34→22:36)
--- NOTE | 2023-07-29 09:17 | HO.PSYCHPN ---
Subjective Subjective Date of Service: 07/29/23 Reason For Visit: Depression Interim History: Met with patient; discussed with team Patient?reports?feeling?better.??She?had?good?visit?with?her??and?son?and?deeply?appreciates?their?love?and Accepts?their?desire?to?help?her?through?this?time.??Patient?denies?any?SI?and?says?she?is?done?with?that?idea Discussed?medications?and?patient?agrees?to?leave?Cymbalta?and?pregabalin?at?current?recently?raised?dose To??see?if?these?things?help?with?chronic?pain. Discussed?possibly?adding?amitriptyline?however?patient?shares?she?has?much?insomnia?due?to?pain?and?so?instead?will Focused?on?helping?her?sleep?with?trazodone.??Also?added?Flexeril?for?chronic?pain?to?see?if?that?can?help. Discussed?disability?lower?which?patient?has?already?obtained;?looked?at?website?for?efficacy?for?people?with Disabilities?in?[place].??Discussed?ways?to?get?reduced?rates?on?prescriptions Mental Status Exam Mental Status Exam Narrative: Pt is alert and oriented; behavior is cooperative, friendly and calm; patient appears physically uncomfortable; dressed in hospital attire with braided hair, adequate hygiene; mood is described as better and affect congruent, brighter; eye contact appropriate; Speech is normal volume, rate and prosody and not pressured; no psychomotor retardation present; thought process is organized and goal directed; Thought content is on relationships with loved ones, focusing on being hopeful; medical illness; otherwise pertinent to relevant topics and without any delusional content, paranoid ideations or grandiosity; intermittent passive SI but fleeting; no plan/intent; no HI. There is no evidence of perceptual disturbance. Patients insight and judgment impaired but improving Diagnostics Vital Signs (24Hr): Vital Signs - 24 hr 07/28/23 09:35 07/28/23 18:00 07/29/23 06:00 Temperature 96.9 F 97.8 F Pulse Rate 78 72 77 Respiratory Rate 16 16 Blood Pressure 144/65 H 113/58 L 125/63 Pulse Oximetry 100 99 98 Oxygen Delivery Method Room Air Room Air Room Air BMI result Body Mass Index 33.4 Labs 07/28/23 07:51 Labs: Laboratory Results - last 48 hr 07/28/23 07:51 Sodium 143 Potassium 3.8 Chloride 108 Carbon Dioxide 24 Anion Gap 15 BUN 13 Creatinine 0.85 Estim Creat Clear Calc 88.1 Estimated GFR > 60 Fasting Glucose 94 Estimat Average Glucose 111 Hemoglobin A1c % 5.5 Calcium 9.9 Magnesium 2.3 Total Bilirubin 0.5 AST 20 ALT 16 Alkaline Phosphatase 76 Total Protein 7.3 Albumin 4.4 Triglycerides 227 H Cholesterol 249 H LDL Cholesterol, Calc 144 H HDL Cholesterol 60 Vitamin B12 373 TSH 4.59 H Free T4 0.79 Medications Medications Current Medications Acetaminophen (Acetaminophen 325 Mg Tablet) 650 mg PO Q6H PRN PRN Reason: Headache/Pain Mild Scale (1-3) Al Hydroxide/Mg Hydroxide (Magnesium Hydrox/Alum Hydrox 30 Ml Oral.Susp) 30 ml PO Q6H PRN PRN Reason: Heartburn/Nausea Duloxetine HCl (Duloxetine Hcl 30 Mg Capsule.Dr) 90 mg PO DAILY [facility] Last Admin: 07/29/23 08:33 Dose: 90 mg Hydroxyzine HCl (Hydroxyzine Hcl 25 Mg Tablet) 25 mg PO Q6H PRN PRN Reason: Anxiety Last Admin: 07/28/23 20:58 Dose: 25 mg Magnesium Hydroxide (Milk Of Magnesia 30 Ml Oral.Susp) 30 ml PO DAILY PRN PRN Reason: Constipation Pravastatin Sodium (Pravastatin Sodium 20 Mg Tablet) 20 mg PO BEDTIME [facility] Last Admin: 07/28/23 20:57 Dose: 20 mg Pregabalin (Pregabalin 150 Mg Capsule) 150 mg PO BID [facility] Last Admin: 07/29/23 08:34 Dose: 150 mg Topiramate (Topiramate 25 Mg Tablet) 25 mg PO DAILY [facility] Last Admin: 07/29/23 08:34 Dose: 25 mg Trazodone HCl (Trazodone Hcl 50 Mg Tablet) 50 mg PO BEDTIME MRX1 PRN PRN Reason: Insomnia Last Admin: 07/28/23 20:58 Dose: 50 mg Allergies Allergies Allergy/AdvReac Type Severity Reaction Status Date / Time No Known Allergies Allergy Verified 07/27/23 22:35 Assessment & Plan Assessment & Plan (1) MDD (major depressive disorder), recurrent severe, without psychosis: Status: Acute Code(s): F33.2 - Major depressive disorder, recurrent severe without psychotic features Plan HPI: Patient is a 47-year-old female with history of depression, fibromyalgia and lupus with nerve damage who presents for suicidal ideation with plan to shoot herself due to worsening pain disability and subsequent worsening depression. Patient says that for most of her life she was overall in a good mood, loved working and has enjoyed a loving partnership with her of 10 years. Patient started becoming physically limited with fibromyalgia however she developed lupus about 6 months ago which has significantly affected her ability to work and even move around the house. Also around the time of her diagnosis her beloved grandmother . Her depression has continually worsened; money has become limited with only one income and though therapy was helping, they have been unable to afford the copays for her therapist. The past few weeks she has been feeling very guilty and a tremendous burden since she can help around the house at all and is watching her struggle to provide for them both financially and physically. Patient says my flare ups... I feel helpless... I can't work, I can help around the house... I have some which pain, my leg feels numb... I fall. This past week, patient was in despair, and thought that her partner would be better off without her. Her partner owns a gun and patient took the gun and contemplated suicide. Her called and interrupted this thought; her love for her partner, her 29-year-old son and the guilt of the pain her suicide would leave them kept her from attempting so patient self presented. Patient's partner has removed the gun. Patient denies any drug or alcohol abuse current, recent or past. Denies any manic episodes or behaviors. History of trauma though not discussed. Hospital course: -patient remains depressed with SI but now passive; does not want to emotionally hurt her beloved ones; open to treatment; increased Cymbalta; Pregabalin recently increased 07/29 reports?feeling?better.??She?had?good?visit?with?her??and?son?and?deeply?appreciates?their?love?and Accepts?their?desire?to?help?her?through?this?time.??Patient?denies?any?SI?and?says?she?is?done?with?that?idea Discussed?medications?and?patient?agrees?to?leave?Cymbalta?and?pregabalin?at?current?recently?raised?dose To??see?if?these?things?help?with?chronic?pain. Discussed?possibly?adding?amitriptyline?however?patient?shares?she?has?much?insomnia?due?to?pain?and?so?instead?will Focused?on?helping?her?sleep?with?trazodone.??Also?added?Flexeril?for?chronic?pain?to?see?if?that?can?help. -If cannot sleep on Trazodone, try other med Plan: CV Q 15 minute checks Increased Cymbalta to 90 mg Continue pregabalin 150 mg b.i.d.; recently increased from 150 daily ADD Flexaril prn START Trazodone 50mg qhs for insomnia; added Trazodone prn if still can't sleep Pursue collateral Patient has applied for disability but has struggled to obtain -pt will try good Rx for cheaper meds; possibly [employer]. 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 -lupus/fibromyalgia: On pregabalin recently increased; does not tolerate NSAID or Tylenol -positive for orthostatic hypotension -HLD: Triglycerides, total cholesterol, and LDL all mildly elevated; Continue statin -Subclinical hypothyroidism: TSH mildly elevated at 4.59 with free T4 WNL at 0.79; Should follow up outpatient with PCP for repeat labs in 3-6 months Patient educated on: diagnosis, medication risk/benefits, therapeutic strategies and medical condition Informed Consent: understands Reason for continued inpatient stay Substantial Risk for: rapid decompensation Time Spent With Patient Time: Total time managing care of this patient today ____ minutes.
[2023-07-29] MEDS: Cyclobenzaprine HCl 10 MG TABLET PO (18:12)
[2023-07-29 22:30] VITALS: BP 98/54; PULSE 81; TEMP 36.4
[2023-07-29] MEDS: Pravastatin Sodium 20 MG TABLET PO (22:35)
[2023-07-29] MEDS: traZODone HCL 50 MG TABLET PO (22:35)
[2023-07-30] MEDS: hydrOXYzine HCL 25 MG TABLET PO ×2 (05:46→20:52)
[2023-07-30 08:10] VITALS: BP 110/55; PULSE 79; RESP 16; TEMP 36.8; O2SAT 98
[2023-07-30] MEDS: Pregabalin 150 MG CAPSULE PO ×2 (08:20→20:46)
[2023-07-30] MEDS: DULoxetine HCl 30 MG CAPSULE.DR 90 MG PO (08:20)
[2023-07-30] MEDS: Topiramate 25 MG TABLET PO (08:20)
[2023-07-30] MEDS: Cyclobenzaprine HCl 10 MG TABLET PO ×3 (11:43→20:46)
--- NOTE | 2023-07-30 13:03 | HO.PSYCHPN ---
Subjective Subjective Date of Service: 07/30/23 Reason For Visit: Depression Subjective Notes: Conditional Voluntary Interim History: Pt reports improved sleep last night. Team reports that she did sleep without interruption. Reports Flexeril was helpful and would like to continue. Interacting in milieu and with peers. Medication Compliance: Yes Side effects from medications: No Attending Groups: Intermittent Review of Systems Acute medical concerns: No Medical Review of Systems: unchanged Mental Status Exam Mental Status Exam Patient Appearance: Appropriate Patient Orientation: Person, Place, Time and Situation Level of Consciousness: Alert Patient Behavior: Talkative and Good Eye Contact Mood Description: Anxious Affect Description: Anxious Patient Cognition Impaired: No Ability to Follow Directions: Good Speech Pattern: Spontaneous Speech Memory Description: Intact Hallucinations: None Thought Process: Intact Thought Content: positive for Intact and positive for Suicidal Ideation (denies) Depressive Symptoms: Thoughts of /Suicide (denies) Judgement: Fair Diagnostics Vital Signs (24Hr): Vital Signs - 24 hr 07/29/23 22:30 07/30/23 08:10 Temperature 97.5 F 98.2 F Pulse Rate 81 79 Respiratory Rate 16 Blood Pressure 98/54 L 110/55 L Pulse Oximetry 98 Oxygen Delivery Method Room Air BMI result Body Mass Index 33.4 Labs 07/28/23 07:51 Medications Medications Current Medications Al Hydroxide/Mg Hydroxide (Magnesium Hydrox/Alum Hydrox 30 Ml Oral.Susp) 30 ml PO Q6H PRN PRN Reason: Heartburn/Nausea Amitriptyline HCl (Amitriptyline Hcl 10 Mg Tablet) 10 mg PO BEDTIME [facility] Last Admin: 07/29/23 22:36 Dose: Not Given Cyclobenzaprine HCl (Cyclobenzaprine Hcl 10 Mg Tablet) 10 mg PO QID PRN PRN Reason: muscle pain Last Admin: 07/30/23 11:43 Dose: 10 mg Duloxetine HCl (Duloxetine Hcl 30 Mg Capsule.Dr) 90 mg PO DAILY [facility] Last Admin: 07/30/23 08:20 Dose: 90 mg Hydroxyzine HCl (Hydroxyzine Hcl 25 Mg Tablet) 25 mg PO Q6H PRN PRN Reason: Anxiety Last Admin: 07/30/23 05:46 Dose: 25 mg Magnesium Hydroxide (Milk Of Magnesia 30 Ml Oral.Susp) 30 ml PO DAILY PRN PRN Reason: Constipation Pravastatin Sodium (Pravastatin Sodium 20 Mg Tablet) 20 mg PO BEDTIME [facility] Last Admin: 07/29/23 22:35 Dose: 20 mg Pregabalin (Pregabalin 150 Mg Capsule) 150 mg PO BID [facility] Last Admin: 07/30/23 08:20 Dose: 150 mg Topiramate (Topiramate 25 Mg Tablet) 25 mg PO DAILY [facility] Last Admin: 07/30/23 08:20 Dose: 25 mg Trazodone HCl (Trazodone Hcl 50 Mg Tablet) 50 mg PO BEDTIME MRX1 PRN PRN Reason: Insomnia Last Admin: 07/28/23 20:58 Dose: 50 mg Trazodone HCl (Trazodone Hcl 50 Mg Tablet) 50 mg PO BEDTIME [facility] Last Admin: 07/29/23 22:35 Dose: 50 mg Allergies Allergies Allergy/AdvReac Type Severity Reaction Status Date / Time No Known Allergies Allergy Verified 07/27/23 22:35 Assessment & Plan Assessment & Plan (1) MDD (major depressive disorder), recurrent severe, without psychosis: Status: Acute Code(s): F33.2 - Major depressive disorder, recurrent severe without psychotic features Plan HPI: Patient is a 47-year-old female with history of depression, fibromyalgia and lupus with nerve damage who presents for suicidal ideation with plan to shoot herself due to worsening pain disability and subsequent worsening depression. Patient says that for most of her life she was overall in a good mood, loved working and has enjoyed a loving partnership with her of 10 years. Patient started becoming physically limited with fibromyalgia however she developed lupus about 6 months ago which has significantly affected her ability to work and even move around the house. Also around the time of her diagnosis her beloved grandmother . Her depression has continually worsened; money has become limited with only one income and though therapy was helping, they have been unable to afford the copays for her therapist. The past few weeks she has been feeling very guilty and a tremendous burden since she can help around the house at all and is watching her struggle to provide for them both financially and physically. Patient says my flare ups... I feel helpless... I can't work, I can help around the house... I have some which pain, my leg feels numb... I fall. This past week, patient was in despair, and thought that her partner would be better off without her. Her partner owns a gun and patient took the gun and contemplated suicide. Her called and interrupted this thought; her love for her partner, her 29-year-old son and the guilt of the pain her suicide would leave them kept her from attempting so patient self presented. Patient's partner has removed the gun. Patient denies any drug or alcohol abuse current, recent or past. Denies any manic episodes or behaviors. History of trauma though not discussed. -patient remains depressed with SI however does not want to emotionally hurt her beloved ones; open to treatment 07/30/23 Continue regime and plan Plan: CV Q 15 minute checks Increasing Cymbalta to 90 mg Continue pregabalin 150 mg b.i.d.; recently increased from 150 daily Pursue collateral Patient has applied for disability but has struggled to obtain -lupus/fibromyalgia: On pregabalin recently increased; does not tolerate NSAIDs -positive for orthostatic hypotension -HLD: Triglycerides, total cholesterol, and LDL all mildly elevated; Continue statin -Subclinical hypothyroidism: TSH mildly elevated at 4.59 with free T4 WNL at 0.79; Should follow up outpatient with PCP for repeat labs in 3-6 months Patient educated on: medication risk/benefits and therapeutic strategies Informed Consent: understands Reason for continued inpatient stay Substantial Risk for: rapid decompensation Time Spent With Patient Time: Total time managing care of this patient today ____ minutes.
[2023-07-30 18:00] VITALS: BP 117/56; PULSE 76; RESP 17; TEMP 36.6; O2SAT 98
[2023-07-30] MEDS: Pravastatin Sodium 20 MG TABLET PO (20:46)
[2023-07-30] MEDS: Amitriptyline HCl 10 MG TABLET PO (20:46)
[2023-07-30] MEDS: traZODone HCL 50 MG TABLET PO ×3 (21:36→21:37)
[2023-07-31] MEDS: Topiramate 25 MG TABLET PO (08:39)
[2023-07-31] MEDS: Pregabalin 150 MG CAPSULE PO ×2 (08:39→20:39)
[2023-07-31] MEDS: DULoxetine HCl 30 MG CAPSULE.DR 90 MG PO (08:39)
[2023-07-31 08:56] VITALS: BP 114/58; PULSE 82; RESP 16; TEMP 36.1; O2SAT 97
[2023-07-31] MEDS: Cyclobenzaprine HCl 10 MG TABLET PO ×3 (09:53→20:41)
--- NOTE | 2023-07-31 10:41 | HO.PSYCHPN ---
Subjective Subjective Date of Service: 07/31/23 Reason For Visit: Depression Subjective Notes: Conditional Voluntary Healthcare Proxy: No Medical Problems Affecting Mental Status: No Interim History: Reports continue sleep disturbance and pain. States both are chronic. Eating OK. States that her depression is better and she is recognizing how much pain she would have caused her and son if she had killed herself. Wants to leave on Wednesday instead of Wednesday because her dog is having surgery Wednesday. Medication Compliance: Yes Side effects from medications: No Attending Groups: Yes Review of Systems Acute medical concerns: No Medical Review of Systems: unchanged Mental Status Exam Mental Status Exam Patient Appearance: Well Grooomed Patient Orientation: Person, Place, Time and Situation Level of Consciousness: Alert Patient Behavior: Appropriate Mood Description: Calm Affect Description: Depressed Patient Cognition Impaired: No Ability to Follow Directions: Excellent Speech Pattern: Clear Memory Description: Intact Delusions: Not Present Thought Process: Goal Oriented Depressive Symptoms: Insomnia and Muscle Pain Diagnostics Vital Signs (24Hr): Vital Signs - 24 hr 07/30/23 18:00 07/31/23 08:56 Temperature 97.9 F 97 F Pulse Rate 76 82 Respiratory Rate 17 16 Blood Pressure 117/56 L 114/58 L Pulse Oximetry 98 97 Oxygen Delivery Method Room Air Room Air BMI result Body Mass Index 33.4 Labs 07/28/23 07:51 Medications Medications Current Medications Al Hydroxide/Mg Hydroxide (Magnesium Hydrox/Alum Hydrox 30 Ml Oral.Susp) 30 ml PO Q6H PRN PRN Reason: Heartburn/Nausea Amitriptyline HCl (Amitriptyline Hcl 10 Mg Tablet) 10 mg PO BEDTIME [facility] Last Admin: 07/30/23 20:46 Dose: 10 mg Cyclobenzaprine HCl (Cyclobenzaprine Hcl 10 Mg Tablet) 10 mg PO QID PRN PRN Reason: muscle pain Last Admin: 07/31/23 09:53 Dose: 10 mg Duloxetine HCl (Duloxetine Hcl 30 Mg Capsule.Dr) 90 mg PO DAILY [facility] Last Admin: 07/31/23 08:39 Dose: 90 mg Hydroxyzine HCl (Hydroxyzine Hcl 25 Mg Tablet) 25 mg PO Q6H PRN PRN Reason: Anxiety Last Admin: 07/30/23 20:52 Dose: 25 mg Magnesium Hydroxide (Milk Of Magnesia 30 Ml Oral.Susp) 30 ml PO DAILY PRN PRN Reason: Constipation Pravastatin Sodium (Pravastatin Sodium 20 Mg Tablet) 20 mg PO BEDTIME [facility] Last Admin: 07/30/23 20:46 Dose: 20 mg Pregabalin (Pregabalin 150 Mg Capsule) 150 mg PO BID [facility] Last Admin: 07/31/23 08:39 Dose: 150 mg Topiramate (Topiramate 25 Mg Tablet) 25 mg PO DAILY [facility] Last Admin: 07/31/23 08:39 Dose: 25 mg Trazodone HCl (Trazodone Hcl 50 Mg Tablet) 50 mg PO BEDTIME MRX1 PRN PRN Reason: Insomnia Last Admin: 07/30/23 21:37 Dose: 50 mg Trazodone HCl (Trazodone Hcl 50 Mg Tablet) 50 mg PO BEDTIME [facility] Last Admin: 07/30/23 21:37 Dose: 50 mg Allergies Allergies Allergy/AdvReac Type Severity Reaction Status Date / Time No Known Allergies Allergy Verified 07/27/23 22:35 Assessment & Plan Assessment & Plan (1) MDD (major depressive disorder), recurrent severe, without psychosis: Status: Acute Code(s): F33.2 - Major depressive disorder, recurrent severe without psychotic features Assessment and Plan: 07/31/23No med changes. Plan HPI: Patient is a 47-year-old female with history of depression, fibromyalgia and lupus with nerve damage who presents for suicidal ideation with plan to shoot herself due to worsening pain disability and subsequent worsening depression. Patient says that for most of her life she was overall in a good mood, loved working and has enjoyed a loving partnership with her of 10 years. Patient started becoming physically limited with fibromyalgia however she developed lupus about 6 months ago which has significantly affected her ability to work and even move around the house. Also around the time of her diagnosis her beloved grandmother . Her depression has continually worsened; money has become limited with only one income and though therapy was helping, they have been unable to afford the copays for her therapist. The past few weeks she has been feeling very guilty and a tremendous burden since she can help around the house at all and is watching her struggle to provide for them both financially and physically. Patient says my flare ups... I feel helpless... I can't work, I can help around the house... I have some which pain, my leg feels numb... I fall. This past week, patient was in despair, and thought that her partner would be better off without her. Her partner owns a gun and patient took the gun and contemplated suicide. Her called and interrupted this thought; her love for her partner, her 29-year-old son and the guilt of the pain her suicide would leave them kept her from attempting so patient self presented. Patient's partner has removed the gun. Patient denies any drug or alcohol abuse current, recent or past. Denies any manic episodes or behaviors. History of trauma though not discussed. Hospital course: -patient remains depressed with SI but now passive; does not want to emotionally hurt her beloved ones; open to treatment; increased Cymbalta; Pregabalin recently increased 07/29 reports?feeling?better.??She?had?good?visit?with?her??and?son?and?deeply?appreciates?their?love?and Accepts?their?desire?to?help?her?through?this?time.??Patient?denies?any?SI?and?says?she?is?done?with?that?idea Discussed?medications?and?patient?agrees?to?leave?Cymbalta?and?pregabalin?at?current?recently?raised?dose To??see?if?these?things?help?with?chronic?pain. Discussed?possibly?adding?amitriptyline?however?patient?shares?she?has?much?insomnia?due?to?pain?and?so?instead?will Focused?on?helping?her?sleep?with?trazodone.??Also?added?Flexeril?for?chronic?pain?to?see?if?that?can?help. -If cannot sleep on Trazodone, try other med Plan: CV Q 15 minute checks Increased Cymbalta to 90 mg Continue pregabalin 150 mg b.i.d.; recently increased from 150 daily ADD Flexaril prn START Trazodone 50mg qhs for insomnia; added Trazodone prn if still can't sleep Pursue collateral Patient has applied for disability but has struggled to obtain -pt will try good Rx for cheaper meds; possibly [employer]. 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
[2023-07-31 16:50] VITALS: BP 117/58; PULSE 106; RESP 16; TEMP 36; O2SAT 97
[2023-07-31] MEDS: Amitriptyline HCl 10 MG TABLET PO (20:38)
[2023-07-31] MEDS: Pravastatin Sodium 20 MG TABLET PO (20:38)
[2023-07-31] MEDS: traZODone HCL 50 MG TABLET PO (20:39)
[2023-07-31] MEDS: hydrOXYzine HCL 25 MG TABLET PO (20:42)
[2023-08-01] MEDS: traZODone HCL 50 MG TABLET PO ×2 (01:22→21:58)
[2023-08-01 06:00] VITALS: BP 113/70; PULSE 96; RESP 16; TEMP 36.6; O2SAT 100
[2023-08-01] MEDS: Pregabalin 150 MG CAPSULE PO ×2 (08:26→21:57)
[2023-08-01] MEDS: Topiramate 25 MG TABLET PO (08:26)
[2023-08-01] MEDS: DULoxetine HCl 30 MG CAPSULE.DR 90 MG PO (08:26)
[2023-08-01] MEDS: Cyclobenzaprine HCl 10 MG TABLET PO ×3 (09:11→21:56)
[2023-08-01] MEDS: Sodium Chloride 0.65 % Nasal 44 ML SPRBTL 1 SPRAY NOSTRIL-B (10:37)
--- NOTE | 2023-08-01 10:53 | HO.PSYCHPN ---
Subjective Subjective Date of Service: 08/01/23 Reason For Visit: Depression Subjective Notes: Conditional Voluntary Healthcare Proxy: No Guardianship: No Medical Problems Affecting Mental Status: No Interim History: Reports sleep disturbance which she relates to pain. Mood is improving. Eating OK. Discussed possibility of joining a lupus support group and getting her into therapy. Patient states doesn't believe in therapy but goes to [facility]. Patient states that a family member has similar diagnosis and they talk about there difficulties. Medication Compliance: Yes Side effects from medications: No Attending Groups: Intermittent Review of Systems Acute medical concerns: No Medical Review of Systems: unchanged Mental Status Exam Mental Status Exam Patient Appearance: Well Grooomed Patient Orientation: Person, Place, Time and Situation Level of Consciousness: Alert Patient Behavior: Appropriate Mood Description: Calm Affect Description: Depressed Patient Cognition Impaired: No Ability to Follow Directions: Excellent Speech Pattern: Clear Memory Description: Intact Hallucinations: None Delusions: Not Present Thought Process: Goal Oriented Depressive Symptoms: Insomnia and Muscle Pain Judgement: Good Diagnostics Vital Signs (24Hr): Vital Signs - 24 hr 07/31/23 16:50 08/01/23 06:00 Temperature 96.8 F 97.9 F Pulse Rate 106 H 96 Respiratory Rate 16 16 Blood Pressure 117/58 L 113/70 Pulse Oximetry 97 100 Oxygen Delivery Method Room Air Room Air BMI result Body Mass Index 33.4 Labs 07/28/23 07:51 Medications Medications Current Medications Al Hydroxide/Mg Hydroxide (Magnesium Hydrox/Alum Hydrox 30 Ml Oral.Susp) 30 ml PO Q6H PRN PRN Reason: Heartburn/Nausea Amitriptyline HCl (Amitriptyline Hcl 10 Mg Tablet) 10 mg PO BEDTIME [facility] Last Admin: 07/31/23 20:38 Dose: 10 mg Cyclobenzaprine HCl (Cyclobenzaprine Hcl 10 Mg Tablet) 10 mg PO QID PRN PRN Reason: muscle pain Last Admin: 08/01/23 09:11 Dose: 10 mg Duloxetine HCl (Duloxetine Hcl 30 Mg Capsule.Dr) 90 mg PO DAILY [facility] Last Admin: 08/01/23 08:26 Dose: 90 mg Hydroxyzine HCl (Hydroxyzine Hcl 25 Mg Tablet) 25 mg PO Q6H PRN PRN Reason: Anxiety Last Admin: 07/31/23 20:42 Dose: 25 mg Magnesium Hydroxide (Milk Of Magnesia 30 Ml Oral.Susp) 30 ml PO DAILY PRN PRN Reason: Constipation Pravastatin Sodium (Pravastatin Sodium 20 Mg Tablet) 20 mg PO BEDTIME [facility] Last Admin: 07/31/23 20:38 Dose: 20 mg Pregabalin (Pregabalin 150 Mg Capsule) 150 mg PO BID [facility] Last Admin: 08/01/23 08:26 Dose: 150 mg Sodium Chloride (Sodium Chloride 0.65 % Nasal 44 Ml Sprbtl) 1 spray NOSTRIL-B Q1H PRN PRN Reason: Congestion Last Admin: 08/01/23 10:37 Dose: 1 spray Topiramate (Topiramate 25 Mg Tablet) 25 mg PO DAILY [facility] Last Admin: 08/01/23 08:26 Dose: 25 mg Trazodone HCl (Trazodone Hcl 50 Mg Tablet) 50 mg PO BEDTIME MRX1 PRN PRN Reason: Insomnia Last Admin: 08/01/23 01:22 EST Dose: 50 mg Trazodone HCl (Trazodone Hcl 50 Mg Tablet) 50 mg PO BEDTIME [facility] Last Admin: 07/31/23 20:39 Dose: 50 mg Allergies Allergies Allergy/AdvReac Type Severity Reaction Status Date / Time No Known Allergies Allergy Verified 07/27/23 22:35 Assessment & Plan Assessment & Plan (1) MDD (major depressive disorder), recurrent severe, without psychosis: Status: Acute Code(s): F33.2 - Major depressive disorder, recurrent severe without psychotic features Assessment and Plan: 07/31/23No med changes. Plan HPI: Patient is a 47-year-old female with history of depression, fibromyalgia and lupus with nerve damage who presents for suicidal ideation with plan to shoot herself due to worsening pain disability and subsequent worsening depression. Patient says that for most of her life she was overall in a good mood, loved working and has enjoyed a loving partnership with her of 10 years. Patient started becoming physically limited with fibromyalgia however she developed lupus about 6 months ago which has significantly affected her ability to work and even move around the house. Also around the time of her diagnosis her beloved grandmother . Her depression has continually worsened; money has become limited with only one income and though therapy was helping, they have been unable to afford the copays for her therapist. The past few weeks she has been feeling very guilty and a tremendous burden since she can help around the house at all and is watching her struggle to provide for them both financially and physically. Patient says my flare ups... I feel helpless... I can't work, I can help around the house... I have some which pain, my leg feels numb... I fall. This past week, patient was in despair, and thought that her partner would be better off without her. Her partner owns a gun and patient took the gun and contemplated suicide. Her called and interrupted this thought; her love for her partner, her 29-year-old son and the guilt of the pain her suicide would leave them kept her from attempting so patient self presented. Patient's partner has removed the gun. Patient denies any drug or alcohol abuse current, recent or past. Denies any manic episodes or behaviors. History of trauma though not discussed. Hospital course: -patient remains depressed with SI but now passive; does not want to emotionally hurt her beloved ones; open to treatment; increased Cymbalta; Pregabalin recently increased 07/29 reports?feeling?better.??She?had?good?visit?with?her??and?son?and?deeply?appreciates?their?love?and Accepts?their?desire?to?help?her?through?this?time.??Patient?denies?any?SI?and?says?she?is?done?with?that?idea Discussed?medications?and?patient?agrees?to?leave?Cymbalta?and?pregabalin?at?current?recently?raised?dose To??see?if?these?things?help?with?chronic?pain. Discussed?possibly?adding?amitriptyline?however?patient?shares?she?has?much?insomnia?due?to?pain?and?so?instead?will Focused?on?helping?her?sleep?with?trazodone.??Also?added?Flexeril?for?chronic?pain?to?see?if?that?can?help. -If cannot sleep on Trazodone, try other med Plan: CV Q 15 minute checks Increased Cymbalta to 90 mg Continue pregabalin 150 mg b.i.d.; recently increased from 150 daily ADD Flexaril prn START Trazodone 50mg qhs for insomnia; added Trazodone prn if still can't sleep Pursue collateral Patient has applied for disability but has struggled to obtain -pt will try good Rx for cheaper meds; possibly [facility]. 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
[2023-08-01] MEDS: hydrOXYzine HCL 25 MG TABLET PO ×2 (14:57→21:57)
[2023-08-01 18:00] VITALS: BP 122/58; PULSE 91; RESP 16; TEMP 35.9; O2SAT 99
[2023-08-01] MEDS: Pravastatin Sodium 20 MG TABLET PO (21:57)
[2023-08-01] MEDS: Amitriptyline HCl 10 MG TABLET PO (21:57)
[2023-08-02 08:15] VITALS: BP 125/61; PULSE 86; RESP 18; TEMP 36.8; O2SAT 98
[2023-08-02] MEDS: Pregabalin 150 MG CAPSULE PO ×2 (08:52→20:06)
[2023-08-02] MEDS: Topiramate 25 MG TABLET PO (08:52)
[2023-08-02] MEDS: DULoxetine HCl 30 MG CAPSULE.DR 90 MG PO (08:53)
--- NOTE | 2023-08-02 09:40 | P.PNPSI_ITS ---
Subjective Subjective Date of Service: 08/02/23 Reason For Visit: Depression Interim History: met with patient; discussed with team Patient reports that she is overall doing much better; says depression is gone and her mood is much better, hopeful and encouraged. Denies any SI at all; reports time spent reflecting and being with her family has helped wipe out any thoughts of SI. Still has struggles with pain. She reports the Flexeril has been helping and wants to continue with it. Also started sleeping better with trazodone but wants to have it increased to see if it is further helpful. Otherwise patient looking forward to going home. working on helping patient get back into therapy Mental Status Exam Mental Status Exam Narrative: Pt is alert and oriented; behavior is cooperative, friendly and calm; dressed in hospital attire with braided hair, adequate hygiene; mood is described as good and affect congruent, brighter; eye contact appropriate; Speech is normal volume, rate and prosody and not pressured; no psychomotor retardation present; thought process is organized and goal directed; Thought content is on relationships with loved ones, focusing on being hopeful; medical illness; otherwise pertinent to relevant topics and without any delusional content, paranoid ideations or grandiosity; no SI; no HI. There is no evidence of perceptual disturbance. Patients insight and judgment fair Diagnostics Vital Signs (24Hr): Vital Signs - 24 hr 08/01/23 18:00 08/02/23 08:15 Temperature 96.7 F L 98.2 F Pulse Rate 91 86 Respiratory Rate 16 18 Blood Pressure 122/58 L 125/61 Pulse Oximetry 99 98 Oxygen Delivery Method Room Air BMI result Body Mass Index 33.4 Labs 07/28/23 07:51 Medications Medications Current Medications Al Hydroxide/Mg Hydroxide (Magnesium Hydrox/Alum Hydrox 30 Ml Oral.Susp) 30 ml PO Q6H PRN PRN Reason: Heartburn/Nausea Amitriptyline HCl (Amitriptyline Hcl 10 Mg Tablet) 10 mg PO BEDTIME [facility] Last Admin: 08/01/23 21:57 Dose: 10 mg Cyclobenzaprine HCl (Cyclobenzaprine Hcl 10 Mg Tablet) 10 mg PO QID PRN PRN Reason: muscle pain Last Admin: 08/01/23 21:56 Dose: 10 mg Duloxetine HCl (Duloxetine Hcl 30 Mg Capsule.Dr) 90 mg PO DAILY [facility] Last Admin: 08/02/23 08:53 Dose: 90 mg Hydroxyzine HCl (Hydroxyzine Hcl 25 Mg Tablet) 25 mg PO Q6H PRN PRN Reason: Anxiety Last Admin: 08/01/23 21:57 Dose: 25 mg Magnesium Hydroxide (Milk Of Magnesia 30 Ml Oral.Susp) 30 ml PO DAILY PRN PRN Reason: Constipation Pravastatin Sodium (Pravastatin Sodium 20 Mg Tablet) 20 mg PO BEDTIME [facility] Last Admin: 08/01/23 21:57 Dose: 20 mg Pregabalin (Pregabalin 150 Mg Capsule) 150 mg PO BID [facility] Last Admin: 08/02/23 08:52 Dose: 150 mg Sodium Chloride (Sodium Chloride 0.65 % Nasal 44 Ml Sprbtl) 1 spray NOSTRIL-B Q1H PRN PRN Reason: Congestion Last Admin: 08/01/23 10:37 Dose: 1 spray Topiramate (Topiramate 25 Mg Tablet) 25 mg PO DAILY [facility] Last Admin: 08/02/23 08:52 Dose: 25 mg Trazodone HCl (Trazodone Hcl 50 Mg Tablet) 50 mg PO BEDTIME [facility]1 PRN PRN Reason: Insomnia Last Admin: 08/01/23 21:58 Dose: 50 mg Trazodone HCl (Trazodone Hcl 100 Mg Tablet) 100 mg PO BEDTIME [facility] Last Admin: 08/01/23 22:49 Dose: Not Given Allergies Allergies Allergy/AdvReac Type Severity Reaction Status Date / Time No Known Allergies Allergy Verified 07/27/23 22:35 Assessment & Plan Assessment & Plan (1) MDD (major depressive disorder), recurrent severe, without psychosis: Status: Acute Code(s): F33.2 - Major depressive disorder, recurrent severe without psychotic features Assessment and Plan: 07/31/23No med changes. Plan HPI: Patient is a 47-year-old female with history of depression, fibromyalgia and lupus with nerve damage who presents for suicidal ideation with plan to shoot herself due to worsening pain disability and subsequent worsening depression. Patient says that for most of her life she was overall in a good mood, loved working and has enjoyed a loving partnership with her of 10 years. Patient started becoming physically limited with fibromyalgia however she developed lupus about 6 months ago which has significantly affected her ability to work and even move around the house. Also around the time of her diagnosis her beloved grandmother . Her depression has continually worsened; money has become limited with only one income and though therapy was helping, they have been unable to afford the copays for her therapist. The past few weeks she has been feeling very guilty and a tremendous burden since she can help around the house at all and is watching her struggle to provide for them both financially and physically. Patient says my flare ups... I feel helpless... I can't work, I can help around the house... I have some which pain, my leg feels numb... I fall. This past week, patient was in despair, and thought that her partner would be better off without her. Her partner owns a gun and patient took the gun and contemplated suicide. Her called and interrupted this thought; her love for her partner, her 29-year-old son and the guilt of the pain her suicide would leave them kept her from attempting so patient self presented. Patient's partner has removed the gun. Patient denies any drug or alcohol abuse current, recent or past. Denies any manic episodes or behaviors. History of trauma though not discussed. Hospital course: -patient remains depressed with SI but now passive; does not want to emotionally hurt her beloved ones; open to treatment; increased Cymbalta; Pregabalin recently increased 07/29 reports?feeling?better.??She?had?good?visit?with?her??and?son?and?deeply?torsten reciates?their?love?and A ccepts?their?desire?to?help?her?through?this?time.??Patient?denies?any?SI?and?sa ys?she?is?done?with?that?idea D iscussed?medications?and?patient?agrees?to?leave?Cymbalta?and?pregabalin?at?curr ent?recently?raised?dose To??see?if?these?things?help?with?chronic?pain. D iscussed?possibly?adding?amitriptyline?however?patient?shares?she?has?much?insom jerzy?due?to?pain?and?so?instead?will F ocused?on?helping?her?sleep?with?trazodone.??Also?added?Flexeril?for?chronic?angela n?to?see?if?that?can?help. -If cannot sleep on Trazodone, try other med 08/02 increasing trazodone to help with sleep since lower dose partially helpful. Asking for discharge. Patient looking forward to returning home where she lives with her supportive ; patient in a good mood and depression/SI fully resolved. Patient is future oriented. She is not in imminent risk for harm to self or others and request for discharge honored. Plan: CV Q 15 minute checks Continue Cymbalta to 90 mg Continue pregabalin 150 mg b.i.d.; recently increased from 150 daily Continue Flexaril prn Increased to Trazodone 100 mg qhs for insomnia; added Trazodone prn if still can't sleep Patient has applied for disability but has struggled to obtain -pt will try good Rx for cheaper meds; possibly [facility]. 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 -lupus/fibromyalgia: On pregabalin recently increased; does not tolerate NSAID or Tylenol -positive for orthostatic hypotension -HLD: Triglycerides, total cholesterol, and LDL all mildly elevated; Continue statin -Subclinical hypothyroidism: TSH mildly elevated at 4.59 with free T4 WNL at 0.79; Should follow up outpatient with PCP for repeat labs in 3-6 months Patient educated on: diagnosis, medication risk/benefits and medical condition Informed Consent: understands Reason for continued inpatient stay Substantial Risk for: stable for discharge Time Spent With Patient Time: Total time managing care of this patient today ____ minutes.
[2023-08-02] MEDS: Sodium Chloride 0.65 % Nasal 44 ML SPRBTL 1 SPRAY NOSTRIL-B (11:10)
[2023-08-02] MEDS: Cyclobenzaprine HCl 10 MG TABLET PO ×2 (12:21→20:14)
[2023-08-02 16:51] VITALS: BP 120/60; PULSE 97; TEMP 36.3; O2SAT 100
[2023-08-02] MEDS: traZODone HCL 100 MG TABLET PO (20:05)
[2023-08-02] MEDS: Pravastatin Sodium 20 MG TABLET PO (20:06)
[2023-08-02] MEDS: Amitriptyline HCl 10 MG TABLET PO (20:06)
[2023-08-03] MEDS: Topiramate 25 MG TABLET PO (07:54)
[2023-08-03] MEDS: DULoxetine HCl 30 MG CAPSULE.DR 90 MG PO (07:54)
[2023-08-03] MEDS: Pregabalin 150 MG CAPSULE PO (07:54)
[2023-08-03] MEDS: Sodium Chloride 0.65 % Nasal 44 ML SPRBTL 1 SPRAY NOSTRIL-B (08:27)
[2023-08-03] MEDS: Cyclobenzaprine HCl 10 MG TABLET PO (08:28)
[2023-08-03 08:44] VITALS: BP 124/68; PULSE 82; RESP 16; TEMP 36.1; O2SAT 98
--- NOTE | 2023-08-03 09:24 | PM.PSYDC ---
DS: Providers Provider Date of Service: 08/03/23 Date of admission: 07/28/23 00:18 Date of discharge: 08/03/23 Primary care physician: Matt Denny PA-C Attending physician on admission: Chavez Newman Consults: 07/28/23 04:18 Consult to Hospitalist Routine Comment: Consulting Provider: Hospitalist Reason For Exam: hospital transfer Attending physician on discharge: Chavez Newman DS: Diagnosis Discharge Diagnosis (1) MDD (major depressive disorder), recurrent severe, without psychosis: Status: Acute DS: Medications Discharge Medications Home Medications: Home Medications Medication Instructions Recorded Confirmed pravastatin 20 mg tablet 20 mg PO DAILY 07/28/23 07/28/23 topiramate 25 mg tablet 25 mg PO DAILY 07/28/23 07/28/23 Previous Rx's Medication Instructions Recorded amitriptyline 10 mg tablet 10 mg PO BEDTIME 30 days #30 tabs 08/03/23 cyclobenzaprine 10 mg tablet 10 mg PO QID PRN muscle pain 3 08/03/23 days #120 tabs duloxetine 30 mg capsule,delayed 30 mg PO DAILY 30 days #30 caps 08/03/23 release duloxetine 60 mg capsule,delayed 60 mg PO DAILY 30 days #30 caps 08/03/23 release hydroxyzine HCl 25 mg tablet 25 mg PO Q6H PRN Anxiety 30 days 08/03/23 #90 tabs pregabalin 150 mg capsule 150 mg PO BID 30 days #60 caps 08/03/23 trazodone 100 mg tablet 100 mg PO BEDTIME PRN insomnia 30 08/03/23 days #30 tabs Mental Status Exam Mental Status Exam Narrative: Pt is alert and oriented; behavior is cooperative, friendly and calm; dressed in casual attire with braided hair, adequate hygiene; mood is described as good and affect congruent, bright, calm; eye contact appropriate; Speech is normal volume, rate and prosody and not pressured; no psychomotor retardation present; thought process is organized and goal directed; Thought content is on relationships with loved ones, focusing on being hopeful; medical illness; otherwise pertinent to relevant topics and without any delusional content, paranoid ideations or grandiosity; no SI; no HI. There is no evidence of perceptual disturbance. Patients insight and judgment fair Data Data Completed and Pending Completed studies during hospitalization [Text1]: 07/28/23 07:51 Sodium 143 Potassium 3.8 Chloride 108 Carbon Dioxide 24 Anion Gap 15 BUN 13 Creatinine 0.85 Estim Creat Clear Calc 88.1 Estimated GFR > 60 Fasting Glucose 94 Estimat Average Glucose 111 Hemoglobin A1c % 5.5 Calcium 9.9 Magnesium 2.3 Total Bilirubin 0.5 AST 20 ALT 16 Alkaline Phosphatase 76 Total Protein 7.3 Albumin 4.4 Triglycerides 227 H Cholesterol 249 H LDL Cholesterol, Calc 144 H HDL Cholesterol 60 Vitamin B12 373 TSH 4.59 H Free T4 0.79 DS: Summary Hospital Course Hospital Course: HPI: Patient is a 47-year-old female with history of depression, fibromyalgia and lupus with nerve damage who presents for suicidal ideation with plan to shoot herself due to worsening pain disability and subsequent worsening depression. Patient says that for most of her life she was overall in a good mood, loved working and has enjoyed a loving partnership with her of 10 years. Patient started becoming physically limited with fibromyalgia however she developed lupus about 6 months ago which has significantly affected her ability to work and even move around the house. Also around the time of her diagnosis her beloved grandmother . Her depression has continually worsened; money has become limited with only one income and though therapy was helping, they have been unable to afford the copays for her therapist. The past few weeks she has been feeling very guilty and a tremendous burden since she can help around the house at all and is watching her struggle to provide for them both financially and physically. Patient says my flare ups... I feel helpless... I can't work, I can help around the house... I have some which pain, my leg feels numb... I fall. This past week, patient was in despair, and thought that her partner would be better off without her. Her partner owns a gun and patient took the gun and contemplated suicide. Her called and interrupted this thought; her love for her partner, her 29-year-old son and the guilt of the pain her suicide would leave them kept her from attempting so patient self presented. Patient's partner has removed the gun. Patient denies any drug or alcohol abuse current, recent or past. Denies any manic episodes or behaviors. History of trauma though not discussed. Hospital course: On admission, pt depressed with some remaining sI but now passive; however, pt reflected on her love for family and concluded she would never want to hurt her loved ones and SI resolved; after visit from family, pt felt renewed and reported ever deepening understanding how SI is never an option. Pt agreed to increase Cymbalta for pain; also agreed to add Flexeril as a p.r.n. which she found helpful; pregabalin had recently been increased by outpatient provider and was continued. Depression resolved and patient remained in good mood. She continued to struggle with chronic pain but had renewed Hope for continuing treatment with outpatient providers and will continue to pursue disability. She struggled with sleep but insomnia resolved with trazodone. Patient felt ready to discharge home. She remained in good mood, without any SI, future oriented and is returning to her family who is supportive. Patient was not in imminent risk for harm to self or others and request for discharge honored. -lupus/fibromyalgia: On pregabalin recently increased; does not tolerate NSAID or Tylenol -positive for orthostatic hypotension -HLD: Triglycerides, total cholesterol, and LDL all mildly elevated; Continue statin -Subclinical hypothyroidism: TSH mildly elevated at 4.59 with free T4 WNL at 0.79; Should follow up outpatient with PCP for repeat labs in 3-6 months Time spent discussing smoking cessation with patient: 3 to 10 minutes Status at Discharge Functional status at discharge: independent ambulation Overall status at discharge: patient is back to baseline Time Spent with Patient Time attestation: Total time managing care of this patient today ____ minutes. Time spent: Greater than 30 minutes Discharge Plan Discharge Anticipated Discharge Date/Time: 08/03/23 11:30 Patient Disposition: Home, Self-Care Discharge Diagnosis: MDD, recurrent, severe without psychosis, in full remission Referrals: Matt Denny PA-C [Primary Care Provider] - 08/17/23 10:45 am (in office) Discharge Medications: New cyclobenzaprine 10 mg Tablet 10 mg PO QID PRN (Reason: muscle pain) 3 Days Qty: 120 1RF duloxetine 30 mg Capsule,Delayed Release(Dr/Ec) 30 mg PO DAILY 30 Days Qty: 30 1RF Rx Instructions: Take daily with 60 mg capsule hydroxyzine HCl 25 mg Tablet 25 mg PO Q6H PRN (Reason: Anxiety) 30 Days Qty: 90 1RF trazodone 100 mg Tablet 100 mg PO BEDTIME PRN (Reason: insomnia) 30 Days Qty: 30 1RF Continued topiramate 25 mg tablet 25 mg PO DAILY pravastatin 20 mg tablet 20 mg PO DAILY duloxetine 60 mg capsule,delayed release(DR/EC) 60 mg PO DAILY 30 Days Qty: 30 1RF Rx Instructions: Take daily with 30 mg capsule pregabalin 150 mg capsule 150 mg PO BID 30 Days Qty: 60 1RF Discharge Orders: Discharge Order (Routine); Ordered 08/03/23 Ordered By: Chavez Newman Diet: Regular diet Activity on Discharge: As tolerated Stand Alone Forms: Patient Portal Discharge page, Community Support Care Plan Goals: Maintain mood and safe behaviors Take medications as prescribed Practice coping skills Continue with outpatient providers and reach out to them as needed Health Concerns: Mood stability and behaviors Fibromyalgia Lupus TSH was mildly elevated at 4.59 with free T4 WNL at 0.79. Follow up outpatient with PCP for repeat labs in 3-6 months Plan of Treatment: Follow up with your PCP, psychiatric provider and other outpatient providers regarding above concerns Take medications as prescribed Assessment: Risk assessment at time of discharge:? Patient was interviewed prior to discharge and found to be fully oriented and without any SI or HI. Patient has improved insight and judgment and wants to continue treatment. Patient is not in imminent risk of harm to self or others and has a safety plan that includes presenting to the closest ER or calling 911 if feeling unsafe.? Patient has been observed closely by nursing and unit staff throughout admission; patient has not engaged in any behaviors that suggest dangerousness to self or others and has demonstrated appropriate behaviors and impulse control
== END 2023-08-03 11:40 | disposition home or self-care (01) | DRG 885 ==
PROVIDERS: Clinical Nurse Specialist Psychiatric/Mental Health, Adult; Admitting Provider Psychiatry & Neurology Psychiatry; PCP Physician Assistant; Visit Provider Psychiatry & Neurology Psychiatry
DX: F33.2 Major depressive disorder, recurrent severe without psychotic features (principal); R45.851 Suicidal ideations; E03.8 Other specified hypothyroidism; E78.5 Hyperlipidemia, unspecified; G43.909 Migraine, unspecified, not intractable, without status migrainosus; M32.9 Systemic lupus erythematosus, unspecified; M79.7 Fibromyalgia; Z23 Encounter for immunization; Z79.899 Other long term (current) drug therapy
CPT/HCPCS: 36415; 80053; 80061; 82607; 83036; 83735; 84439; 84443; 90686; 93005

== ENCOUNTER → 2023-07-28 00:18 | Outpatient (BNV) | payer OTHER, SELFPAY | PROVIDERS: Admitting Provider Psychiatry & Neurology Psychiatry; PCP Physician Assistant; Visit Provider Student in an Organized Health Care Education/Training Program | DX: Z02.2 Encounter for examination for admission to residential institution (principal) | CPT/HCPCS: 99429 ==

== ENCOUNTER → 2023-07-28 00:18 | Outpatient (BNV) | payer OTHER, SELFPAY | PROVIDERS: Admitting Provider Psychiatry & Neurology Psychiatry; PCP Physician Assistant; Visit Provider Psychiatry & Neurology Psychiatry | DX: F33.2 Major depressive disorder, recurrent severe without psychotic features (principal) | CPT/HCPCS: 90792; 99231; 99232; 99239 ==